=== PATIENT | male | born 1990 | race Caucasian/White ===

== ENCOUNTER 2017-10-10 11:50 | Observation (INO) ==
[2017-10-10 12:34] LABS: Basophils % 0.4 %; Immature Granulocytes % 0.4 % (0-4)
[2017-10-10 12:36] LABS: Eosinophils # 0.1 K/mcL (0.0-0.6); Eosinophils % 4.3 %; Hematocrit 17.1 % (37.5-50.1); Lymphocytes # 0.5 K/mcL (0.6-4.6); Lymphocytes % 19.8 %; Mean Corpuscular HGB Conc 25.1 g/dL (31.6-35.5); Mean Corpuscular Hemoglobin 17.8 pg (28.0-33.3); Mean Platelet Volume 9.2 fL (9.4-12.4); Monocytes # 0.2 K/mcL (0.0-1.3); Monocytes % 8.9 %; Neutrophils # 1.7 K/mcL (1.6-8.9); Platelet Count 201 K/mcL (140-400); Red Blood Count 2.41 M/mcL (4.19-5.50); Segmented Neutrophils % 66.2 %
[2017-10-10 12:39] LABS: Hemoglobin 4.3 g/dL (12.9-16.9)
[2017-10-10 12:59] LABS: Alanine Aminotransferase 8 Units/L (7-52); Albumin 4.4 g/dL (3.5-5.7); Albumin/Globulin Ratio 1.8 (1.1-2.2); Alkaline Phosphatase 65 Units/L (34-104); Aspartate Amino Transferase 13 Units/L (13-39); BUN/Creatinine Ratio 16 (6-26); Bilirubin,Total 0.8 mg/dL (0.3-1.0); Blood Urea Nitrogen 10 mg/dL (6-20); Calcium 8.9 mg/dL (8.6-10.3); Carbon Dioxide 25 mEq/L (23-29); Chloride 106 mEq/L (98-107); Globulin 2.4 g/dL (2.4-3.5); Glucose 79 mg/dL (70-105); Osmolality,Calculated 280 (280-300); Potassium 3.8 mEq/L (3.5-5.1); Sodium 136 mEq/L (136-145); Total Protein 6.8 g/dL (6.4-8.9); eGFR For African Americans > 60 (> 60); eGFR For Non-African Americans > 60 (> 60)
--- NOTE | 2017-10-10 13:04 | Emergency Department Note ---
Disposition Clinical Impression: Cystic hygroma Anemia Qualifiers: Anemia type: unspecified type Qualified Code(s): D64.9 - Anemia, unspecified Disposition: Admitted As Inpatient Condition: Fair Forms: ED Satisfaction Letter, Work/School Release Time of Disposition: 13:25 Recheck wound or abnormal lab - General Chief Complaint: ED General Medical Stated Complaint: "hemoglobin is low" Time Seen by Provider: 10/10/17 12:44 Source: patient Mode of arrival: ambulatory Limitations: no limitations Nursing Notes Reviewed: Yes Vital Signs Reviewed: Yes - History of Present Illness HPI Narrative: 26-year-old with a history of a cystic hygroma of the tongue who comes in for possible low blood count. Patient states he intermittently will require blood transfusions. I reviewed the records his last transfusion about a year and a half ago. Pt Subjective Complaint: abnormal lab(s) Associated symptoms: other (Generalized weakness) - Related Data Home Medications Medication Instructions Recorded Confirmed Ferrous Sulfate 325 mg PO BID 04/30/15 07/16/15 Folic Acid 03/09/17 Mirtazapine 03/09/17 Previous Rx's Medication Instructions Recorded predniSONE [PredniSONE] 10 mg PO DAILY #30 tablet 07/18/15 DiphenhydraMINE [Benadryl] 25 mg PO Q6HR PRN #20 capsule 03/09/17 EPINEPHrine [Epipen] 0.3 mg IM ONCE PRN #1 kit 03/09/17 Ranitidine HCl [Zantac] 150 mg PO BID #6 tablet 03/09/17 predniSONE [PredniSONE] 20 mg PO BID #10 tablet 03/09/17 Allergies Allergy/AdvReac Type Severity Reaction Status Date / Time No Known Allergies Allergy Verified 10/10/17 12:02 All systems ED: reviewed and negative except as stated. Constitutional: Denies: fever, chills, weakness, weight change Eyes: Denies: eye pain, eye discharge, vision change ENT ED: Denies: ear pain, throat pain, dental pain, hearing loss, epistaxis, congestion, dysphagia Cardiovascular: Denies: chest pain, palpitations, dyspnea on exertion, edema, syncope Respiratory: Denies: cough, dyspnea, wheezes, hemoptysis, stridor Gastrointestinal: Denies: abdominal pain, nausea, vomiting, diarrhea, constipation, hematemesis, melena, hematochezia Genitourinary: Denies: urgency, dysuria, frequency, hematuria Musculoskeletal: Denies: back pain, neck pain, arthralgia, myalgia Integumentary: Denies: rash, abrasion, lesions Neurological: Reports: weakness (Generalized). Denies: headache, numbness, paresthesias, confusion, abnormal gait, vertigo Psychiatric: Denies: anxiety, depression, suicidal thoughts, homicidal thoughts , auditory hallucinations, visual hallucinations Endocrine: Denies: fatigue Hematological/Lymphatic: Denies: easy bleeding, easy bruising Allergic/Immunologic: Denies: facial swelling, urticaria Past Medical History - Past Medical History Medical history: Reports: other Surgical history: Reports: other (10 surgeries in the past for cystic hygroma) Psychiatric history: Reports: depression - Social History Smoking Status: Current every day smoker Smokeless Tobacco Status: No Alcohol use: Reports: none Drug use: Reports: marijuana Physical Exam - General Limitations: no limitations General appearance: alert - Head Head exam: atraumatic, normocephalic, normal inspection - Eye Eye exam: Present: normal appearance - ENT ENT exam: other (Large cystic hygroma of the tongue which patient states is stable.) - Chest Chest inspection: Present: normal inspection, symmetric chest wall rise - Respiratory Respiratory exam: Present: normal lung sounds bilaterally - Cardiovascular Cardiovascular exam: Present: regular rate, normal rhythm, normal heart sounds - Abdominal Exam Abdominal exam: Present: soft, Non-Tender. Absent: tenderness, distention, guarding, rebound, rigidity - Extremities Exam Extremities exam: Present: normal inspection, full ROM. Absent: tenderness, pedal edema - Expanded Lower Extremity Exam Neurovascular/Tendon exam: Absent: motor deficit, sensory deficit, tendon deficit Gait: observed and normal - Back Exam Back exam: Present: normal inspection, full ROM. Absent: tenderness - Neurological Exam Neurological exam: Present: alert, oriented X3 - Psychiatric Psychiatric exam: Present: normal affect, normal mood - Skin Skin exam: Present: warm, dry, intact, normal color Course - Consultations Consultation #1: 26-year-old male with a cystic hygroma who comes in with low hemoglobin. Patient will be admitted for blood transfusion. Patient was discussed with amie Parker. Time: 13:18 Vital Signs Temperature 98.3 F 10/10/17 12:02 Pulse Rate 93 10/10/17 12:02 Respiratory Rate 20 10/10/17 12:02 Blood Pressure 117/65 10/10/17 12:02 O2 Sat by Pulse Oximetry 100 10/10/17 12:02 Temperature 98.3 F 10/10/17 12:02 Pulse Rate 93 10/10/17 12:02 Respiratory Rate 20 10/10/17 12:02 Blood Pressure 117/65 10/10/17 12:02 O2 Sat by Pulse Oximetry 100 10/10/17 12:02 Oxygen Delivery Oxygen Delivery Room Air Recheck wound or abnormal lab - Lab Data Result diagrams: 10/10/17 12:05 10/10/17 12:05 Lab Results 10/10/17 10/10/17 Range/Units 12:05 12:05 WBC 2.6 L (4.3-11.1) K/mcL RBC 2.41 L (4.19-5.50) M/mcL Hgb 4.3 L* (12.9-16.9) g/dL Hct 17.1 L (37.5-50.1) % MCV 71.0 L (83.0-100.0) fL MCH 17.8 L (28.0-33.3) pg MCHC 25.1 L (31.6-35.5) g/dL RDW 20.0 H (11.5-14.5) % Plt Count 201 (140-400) K/mcL MPV 9.2 L (9.4-12.4) fL Sodium 136 (136-145) mEq/L Potassium 3.8 (3.5-5.1) mEq/L Chloride 106 (98-107) mEq/L Carbon Dioxide 25 (23-29) mEq/L BUN 10 (6-20) mg/dL Creatinine 0.62 L (0.70-1.30) mg/dL Est GFR ( Amer) > 60 (> 60) Est GFR (Non-Af Amer) > 60 (> 60) BUN/Creatinine Ratio 16 (6-26) Glucose 79 (70-105) mg/dL Calculated Osmolality 280 (280-300) Calcium 8.9 (8.6-10.3) mg/dL Total Bilirubin 0.8 (0.3-1.0) mg/dL AST 13 (13-39) Units/L ALT 8 (7-52) Units/L Alkaline Phosphatase 65 (34-104) Units/L Serum Total Protein 6.8 (6.4-8.9) g/dL Albumin 4.4 (3.5-5.7) g/dL Globulin 2.4 (2.4-3.5) g/dL Albumin/Globulin Ratio 1.8 (1.1-2.2)
[2017-10-10] MEDS ORDERED: Ondansetron 4 MG/2 ML VIAL IVP ONE (13:33)
[2017-10-10] MEDS ORDERED: methylPREDNISolone 125 MG/2 ML VIAL IVP ONE (13:33)
[2017-10-10] MEDS ORDERED: *HR* FentaNYL (PF) 100 MCG/2 ML VIAL IVP ONE (13:33)
[2017-10-10 13:43] LABS: Anisocytosis 1+ (Not Present); Hypochromasia Present (Not Present); Microcytosis Present (Not Present); Platelet Estimate Normal (Normal)
--- NOTE | 2017-10-10 17:26 | Internal Med History&Physical ---
Date of Encounter: 10/10/17 Time of Encounter: 18:44 Internal Medicine - H&P: HPI Admitted From: Home Plans for Post Hospital Care: Home History of present illness: Mr. Simmons is a 26 year old male with known history of cystic hygroma of the tongue in the care of ENT at [facility] but did not see for a few years, history of repeated blood transfusion got admitted with complaint of fatigue, generalized weakness. In the ER hemoglobin was found to be 4.3. Therefore patient got admitted for management of symptomatic anemia. Patient denies fever, chills, nausea, vomiting, shortness of breath, choking sensation of throat, abdominal pain, hemoptysis, hematemesis, hematochezia, headache, dizziness, urinary complaint Past Med Surg Social Fam HX - Past Medical History Medical history: other Psychiatric history: depression - Past Surgical History Surgical History: other - Social History Smoking Status: Current every day smoker Packs per day: 0.5 Smokeless Tobacco Status: No Alcohol use: none Drug use: marijuana - Family History Father Adopted: No Living Status: Still Living Hx Family Cardiac Disorders: No Hx Family Respiratory Disorders: No Hx Family Endocrine Disorder: Yes Hx Family Medical Disorders: Yes Internal Medicine - H&P: Meds Buprenorphine HCl/Naloxone HCl [Buprenorphin-Naloxon 8-2 mg Sl] 2 tab SL DAILY 10/10/17 [History] Folic Acid [Folic Acid] 1 mg PO DAILY 10/10/17 [History] 3 Allergy/AdvReac Type Severity Reaction Status Date / Time No Known Allergies Allergy Verified 10/10/17 12:02 All Systems PM: A 10-system review of systems was performed and is negative for pertinent findings except as documented above in the HPI. - Constitutional Vitals: Temp Pulse Resp BP Pulse Ox 98.4 F 78 17 119/56 100 10/10/17 16:57 10/10/17 16:57 10/10/17 16:57 10/10/17 16:35 10/10/17 16:57 Exam: General appearance: No acute distress, A&O X 3. Pale Head exam: Atraumatic Eye exam: EOMI, PERRLA. Pallor conjunctiva ENT exam: Moist oral mucosa. Large tongue with swelling and superficial ulcerated tongue without active bleeding Neck nontender, supple Respiratory exam: Clear to auscultation bilaterally Cardiovascular exam: Regular rate and rhythm, no systolic murmur Abdominal exam: Soft, nontender, nondistended, positive bowel sounds Extremities exam: No calf tenderness, no pedal edema Present: Skin-no rash, warm, dry, intact Neurological exam: Alert, awake, oriented 3, CN II-XII intact, no focal deficits. No facial droop. Normal speech. Normal gait. Internal Med - H&P Results - Labs CBC & Chem 7: 10/11/17 13:57 10/10/17 12:05 - Assessment and plan (1) Anemia Current Visit: Yes Status: Acute Assessment and plan: Acute on chronic anemia most likely due to chronic blood loss. History of repeated blood transfusion. No active visible bleeding. Needs blood transfusion. 2 unit PRC stat ordered. H&H every 8 hour. Qualifiers: Anemia type: unspecified type Qualified Code(s): D64.9 - Anemia, unspecified (2) Cystic hygroma Current Visit: Yes Status: Chronic Assessment and plan: Chronic. Status post surgery done by ENT specialist in the past. Noncompliant. No airway compromise at this time but consider high-dose steroid due to ongoing swelling. Will also consult ENT specialist for further advice (3) DVT prophylaxis Current Visit: No Status: Acute Assessment and plan: SCDs - Time Spent With Patient Total time spent is greater than 50% in coordination of care (as documented) at patient's floor/unit and/or counseling patient:
[2017-10-10] MEDS ORDERED: Naloxone 0.4 MG/ML INJ IVP PRN (18:16)
[2017-10-10 19:12] LABS: Hematocrit 16.9 % (37.5-50.1)
[2017-10-10 20:00] LABS: Hemoglobin 4.2 g/dL (12.9-16.9)
[2017-10-10] MEDS: *HR* HYDROcodone/Acet 5/325 mg TABLET PO PRN (22:14)
[2017-10-10] MEDS ORDERED: 0.9 % Sodium Chloride 250 ML ONE (23:27)
[2017-10-11] MEDS: methylPREDNISolone 125 MG/2 ML VIAL IVP SCH ×3 (00:18→17:22)
[2017-10-11] MEDS ORDERED: 0.9 % Sodium Chloride 250 ML ONE ×3 (03:02→17:52)
[2017-10-11] MEDS: *HR* HYDROcodone/Acet 5/325 mg TABLET PO PRN ×3 (05:34→18:49)
[2017-10-11 07:03] LABS: Hematocrit 21.9 % (37.5-50.1)
--- NOTE | 2017-10-11 07:58 | ENT - Consult Note ---
Date of Encounter: 10/11/17 Time of Encounter: 07:30 Assessment and Plan (1) Cystic hygroma Current Visit: No Status: Acute Patient with history of cystic hygroma of neck who is status post multiple surgical procedures and injection therapy. He is stable. No further surgery has been planned for the patient and is followed by ENT and [facility]. Intermittently he has increase in the swelling of the tongue which responds well to steroid therapy which she receives last p.m. and is doing much better. He may require steroid therapy couple of times per year and he knows when to seek this time he is doing well would consider a short course of steroid taper over the next week. Is okay to advance his diet as tolerated at this time. He is to follow-up with Celine CANTRELLU History of Present Illness Consult date: 10/11/17 History of present illness: Grover is a 26-year-old male with history of cystic hygroma in the neck. Status post multiple surgical procedures and sclerotherapy is followed by ENT at [facility] and also a local ENT. Has not been seen for a couple of years. Typically has intermittent swelling of the tongue requiring steroids to decrease the swelling. Also has history of chronic anemia requiring intermittent blood transfusion. He was admitted last night with generalized weakness and fatigue and findings of a hemoglobin of 4.3. He was given 2 units of packed RBCs and is pending reevaluation of his hemoglobin and he also received IV Solu-Medrol for the tongue swelling. He is feeling much better. He is able to eat and drink however he has been kept on liquid diet only overnight and is hungry and desires to eat he is feeling much better than last p.m. He does not have any airway problems no stridor no difficulties breathing is not having any difficulty swallowing, there is no oral tongue bleeding Past Med Surg Social Fam HX - Past Medical History Medical history: other Psychiatric history: depression - Past Surgical History Surgical History: other - Social History Smoking Status: Current every day smoker Packs per day: 0.5 Smokeless Tobacco Status: No Alcohol use: none Drug use: marijuana - Family History Father Adopted: No Living Status: Still Living Hx Family Cardiac Disorders: No Hx Family Respiratory Disorders: No Hx Family Endocrine Disorder: Yes Hx Family Medical Disorders: Yes Medications and Allergies Buprenorphine HCl/Naloxone HCl [Buprenorphin-Naloxon 8-2 mg Sl] 2 tab SL DAILY 10/10/17 [History] Folic Acid [Folic Acid] 1 mg PO DAILY 10/10/17 [History] 3 Allergy/AdvReac Type Severity Reaction Status Date / Time No Known Allergies Allergy Verified 10/10/17 12:02 ENT Exam Initial Vital Signs Temp Pulse Resp BP Pulse Ox 98.3 F 93 20 117/65 100 10/10/17 12:02 10/10/17 12:02 10/10/17 12:02 10/10/17 12:02 10/10/17 12:02 - General physical appearance well developed, well nourished, no distress - Eyes PERRL, normal ocular movement - ENT normal pinna, normal nares, normal mucosa, no hearing loss, no congestion, CN 2- 12 grossly intact, Other (Patient has large tongue and increase vascular Capillaries within the tongue and floor of mouth is not obstructing. There is no active bleeding. This is his usual state. He is edentulous oropharynx is without obstruction. He has had previous tonsillectomy pathology seen and noted is increased vascular capillaries no active bleeding and no airway obstruction) - Neck other (Patient has well-healed scars on his neck from previous neck surgery for his cystic hygroma. Is still evidence of cystic hygroma within mentum and submentum and level II bilateral no overlying no tenderness) - Respiratory normal expansion, normal respiratory effort - Neurologic CN 2-12 grossly intact, normal coordination - Musculoskeletal normal posture Exam Initial Vital Signs Temp Pulse Resp BP Pulse Ox 98.3 F 93 20 117/65 100 10/10/17 12:02 10/10/17 12:02 10/10/17 12:02 10/10/17 12:02 10/10/17 12:02 Results - Labs 10/11/17 06:50 10/10/17 12:05 Abnormal lab results WBC 2.6 K/mcL (4.3-11.1) L 10/10/17 12:05 RBC 2.41 M/mcL (4.19-5.50) L 10/10/17 12:05 Hgb 6.0 g/dL (12.9-16.9) L* D 10/11/17 06:50 Hct 21.9 % (37.5-50.1) L 10/11/17 06:50 MCV 71.0 fL (83.0-100.0) L 10/10/17 12:05 MCH 17.8 pg (28.0-33.3) L 10/10/17 12:05 MCHC 25.1 g/dL (31.6-35.5) L 10/10/17 12:05 RDW 20.0 % (11.5-14.5) H 10/10/17 12:05 MPV 9.2 fL (9.4-12.4) L 10/10/17 12:05 Lymphocytes # 0.5 K/mcL (0.6-4.6) L 10/10/17 12:05 Hypochromasia Present (Not Present) A 10/10/17 12:05 Anisocytosis 1+ (Not Present) A 10/10/17 12:05 Microcytosis Present (Not Present) A 10/10/17 12:05 Creatinine 0.62 mg/dL (0.70-1.30) L 10/10/17 12:05 All other labs normal. Consult Discharge Plan - Plan Referrals: Kristyn Weaver CNP [Primary Care Provider] -
--- NOTE | 2017-10-11 08:30 | Internal Med Progress Note ---
<Real Calloway Brenda - Last Filed: 10/11/17 15:40> Date of Encounter: 10/11/17 - Assessment and plan (1) Anemia Current Visit: Yes Status: Acute Qualifiers: Anemia type: unspecified type Qualified Code(s): D64.9 - Anemia, unspecified (2) Cystic hygroma Current Visit: Yes Status: Chronic (3) DVT prophylaxis Current Visit: No Status: Acute - Time Spent With Patient Total time spent is greater than 50% in coordination of care (as documented) at patient's floor/unit and/or counseling patient: - Constitutional Vitals: Temp Pulse Resp BP Pulse Ox 97.6 F 80 16 109/65 99 10/11/17 15:22 10/11/17 15:22 10/11/17 15:22 10/11/17 15:22 10/11/17 15:22 Internal Medicine: Result - Labs CBC & Chem 7: 10/11/17 13:57 10/10/17 12:05 Labs: Short CBC 10/10/17 10/11/17 10/11/17 Range/Units 18:38 06:50 13:57 Hgb 4.2 L* 6.0 L* D 6.9 L (12.9-16.9) g/dL Hct 16.9 L 21.9 L 24.7 L (37.5-50.1) % Consult Discharge Plan - Plan Referrals: Kristyn Weaver, [facility] [Primary Care Provider] - - Attending Attestation I performed an independent interview and examin of this patient. I agree with the findings, assessment, and plan of Dr. Palmer, internal medicine resident. I input is reflected in his note. ENT input is appreciated. Patient has a history of known bleeding from his cystic hygroma. He is ordered for 3 units of packed blood cells in total. Possibly a fourth if needed. Repeat hemoglobin is 6.9. Patient states he does not sense any further bleeding as he is often aware when he does. He remains hemodynamically stable. His tongue swelling has improved since starting steroids. We will continue to monitor overnight, check serial hemoglobins. All else as outlined above. <Julio Cesar Palmer - Last Filed: 10/11/17 18:51> Date of Encounter: 10/11/17 Time of Encounter: 08:30 - Assessment and plan (1) Anemia Current Visit: Yes Status: Acute Assessment and plan: Acute on chronic anemia most likely due to chronic blood loss from his cystic hygroma. History of repeated blood transfusion. HGB 4.2 on arrival. No active visible bleeding. Patient states he does not sense any further bleeding as he is often aware when he does. He remains hemodynamically stable. His tongue swelling has improved since starting steroids. 4 units PRC transfused. Monitor H&H every 8 hour. Continue blood transfusion prn HGB < 7. Qualifiers: Anemia type: unspecified type Qualified Code(s): D64.9 - Anemia, unspecified (2) Cystic hygroma Current Visit: Yes Status: Chronic Assessment and plan: Chronic. Status post surgery done by ENT specialist in the past. Noncompliant. No airway compromise at this time. His tongue swelling has improved since starting steroids. ENT consulted, input much appreciated (3) Irregular cardiac rhythm Current Visit: Yes Status: Acute Assessment and plan: Patient had occasional ST depressions noted on telemetry strip and EKG revealed abnormal rhythm. EKG revealed inconsistent p waves Cardiac murmur auscultated on exam Echo pending, r/o hypoplastic left heart given concurrent cystic hygroma (4) DVT prophylaxis Current Visit: No Status: Acute Assessment and plan: SCDs - Time Spent With Patient Total time spent is greater than 50% in coordination of care (as documented) at patient's floor/unit and/or counseling patient: - Subjective Interval history: Patient seen and examined resting comfortably in bed, Patient reports no acute complaints and tongue swelling has improved with steroids. He has received 3 units of PRBC and HGB increased to 6.9. Of note, patient had occasional ST depressions noted on telemetry strip and EKG revealed abnormal rhythm. Family is at bedside. - Constitutional Vitals: Temp Pulse Resp BP Pulse Ox 97.9 F 70 18 109/64 100 10/11/17 07:05 10/11/17 07:05 10/11/17 07:05 10/11/17 07:05 10/11/17 07:05 General appearance: Present: cooperative, mild distress, A&O X 3, pleasant, answers questions appropriately - Head Head exam: Present: atraumatic, normocephalic - Eye Eye exam: Present: PERRL, conjuntiva pink, sclera anicteric Pupils: Present: PERRL - ENT ENT exam: Present: mucous membranes moist. Absent: normal exam, normal oropharynx - Expanded ENT Exam Mouth exam: Present: moist, muffled voice, tongue elevation, tongue hypertrophy. Absent: normal external inspection, tongue normal - Neck Neck exam general surgery: Present: supple, trachea midline. Absent: lymphadenopathy - Expanded Neck Exam Neck exam: Present: anterior neck swelling. Absent: carotid bruit, tracheal deviation - Respiratory Respiratory exam: Present: CTAB. Absent: accessory muscle use, rales, rhonchi, wheezes - Cardiovascular Cardiovascular exam: Present: irregular rhythm, +S1, +S2, systolic murmur. Absent: diastolic murmur, distant heart sounds, gallop, rubs - GI/Abdominal GI/Abdominal exam: Present: normal bowel sounds, soft, no peritoneal signs. Absent: distended, tenderness - Extremities Exam Extremities exam: Present: warm, radial pulses palpable and symmetrical. Absent : calf tenderness, cyanotic, pedal edema - Back Exam Back exam: Present: normal inspection. Absent: tenderness - Neurological Exam Neurological exam: Present: CN II-XII intact, oriented X3, no focal deficits. Absent: pronater drift, facial droop, speech deficit - Psychiatric Psychiatric exam: Present: normal affect, normal mood - Skin Skin exam: Present: dry, intact, pallor, warm Internal Medicine: Result - Labs CBC & Chem 7: 10/11/17 13:57 10/10/17 12:05 Labs: Short CBC 10/10/17 10/11/17 Range/Units 18:38 06:50 Hgb 4.2 L* 6.0 L* D (12.9-16.9) g/dL Hct 16.9 L 21.9 L (37.5-50.1) % - Pulse Oximetry Interpretation Digit-Finger Pulse Oximetry Readin (On RA) - EKG Interpretation EKG Interpreted by Myself: Yes (EKG revealed inconsistent p waves) EKG shows normal: axis, intervals, QRS complexes, ST-T waves Rate: normal - Prior EKG Data Prior EKG available for review: no
[2017-10-11] MEDS: Folic Acid 1 MG TABLET PO SCH (09:57)
[2017-10-11 14:20] LABS: Hematocrit 24.7 % (37.5-50.1); Hemoglobin 6.9 g/dL (12.9-16.9)
[2017-10-11] MEDS: (Buprenorphine Hcl/Naloxone Hcl [Buprenorphin-Naloxon SL SCH (18:50)
[2017-10-12] MEDS: methylPREDNISolone 125 MG/2 ML VIAL IVP SCH ×2 (00:09→10:19)
[2017-10-12] MEDS: *HR* HYDROcodone/Acet 5/325 mg TABLET PO PRN (04:53)
[2017-10-12 05:22] LABS: Immature Granulocytes % 0.7 % (0-4); Mean Corpuscular Hemoglobin 20.9 pg (28.0-33.3); Red Cell Distribution Width 19.7 % (11.5-14.5)
[2017-10-12 05:24] LABS: Basophils % 0.2 %; Hematocrit 28.3 % (37.5-50.1); Lymphocytes # 0.2 K/mcL (0.6-4.6); Lymphocytes % 4.7 %; Mean Corpuscular HGB Conc 28.3 g/dL (31.6-35.5); Mean Corpuscular Volume 73.9 fL (83.0-100.0); Monocytes # 0.2 K/mcL (0.0-1.3); Monocytes % 3.4 %; Neutrophils # 4.1 K/mcL (1.6-8.9); Nucleated Red Blood Cells 1.1 /100 WBC (0); Platelet Count 203 K/mcL (140-400); Red Blood Count 3.83 M/mcL (4.19-5.50)
[2017-10-12 05:38] LABS: BUN/Creatinine Ratio 22 (6-26); Blood Urea Nitrogen 12 mg/dL (6-20); Calcium 9.2 mg/dL (8.6-10.3); Carbon Dioxide 25 mEq/L (23-29); Chloride 105 mEq/L (98-107); Glucose 137 mg/dL (70-105); Magnesium 2.1 mg/dL (1.6-2.6); Osmolality,Calculated 282 (280-300); Potassium 4.3 mEq/L (3.5-5.1); Sodium 135 mEq/L (136-145); eGFR For African Americans > 60 (> 60); eGFR For Non-African Americans > 60 (> 60)
[2017-10-12 05:43] LABS: Platelet Estimate Normal (Normal)
[2017-10-12 05:44] LABS: Anisocytosis 1+ (Not Present); Hypochromasia Present (Not Present)
[2017-10-12 05:45] LABS: Microcytosis Present (Not Present); Polychromasia 1+ (Not Present)
[2017-10-12 05:51] LABS: Thyroid Stimulating Hormone 0.166 mcIU/mL (0.340-5.600)
[2017-10-12 07:03] VITALS: BP 110/60
[2017-10-12] MEDS: (Buprenorphine Hcl/Naloxone Hcl [Buprenorphin-Naloxon SL SCH (10:19)
[2017-10-12] MEDS: Folic Acid 1 MG TABLET PO SCH (10:19)
--- NOTE | 2017-10-12 14:35 | Discharge Summary ---
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 Status post multiple surgical procedures and sclerotherapy is followed by ENT at [facility] and also a local ENT. Has not been seen for a couple of years. Typically has intermittent swelling of the tongue requiring steroids to decrease the swelling. Also has history of chronic anemia requiring intermittent blood transfusion. He was admitted last night with generalized weakness and fatigue and findings of a hemoglobin of 4.3. He was given 5 units of packed RBCs since admission. Hemoglobin has been trending up 4.2/6.0/6.9/ 8.0. Patient is stable. Denies any active bleeding. Denies CP, SOB, abdominal pain. Voiding without difficulty. +BM. Tolerating food intake. Plan to discharge patient today with ENT outpatient follow-up and prednisone taper for 9 days. Patient demonstrates understanding and is agreeable to treatment plan. Discharge discussed with: patient - Time Spent with Patient Total time spent providing and/or coordinating discharge services: Greater than 30 minutes - Discharge Medications Prescriptions: PredniSONE [Deltasone] See Taper PO DAILY #12 tablet Home Medications: Buprenorphine HCl/Naloxone HCl [Buprenorphin-Naloxon 8-2 mg Sl] 2 tab SL DAILY 10/10/17 [History] Folic Acid [Folic Acid] 1 mg PO DAILY 10/10/17 [History] PredniSONE [Deltasone] See Taper PO DAILY #12 tablet 10/12/17 [Rx] Allergies/Adverse Reactions: 3 Allergy/AdvReac Type Severity Reaction Status Date / Time No Known Allergies Allergy Verified 10/10/17 12:02 Date of admission: 10/10/17 16:04 Primary care physician: Kristyn Weaver Consults: 10/10/17 18:16 Consult to ENT [CONS] Routine Consulting Provider: ENT Bekah Reason for Consult: Cystic hygroma Time Notified: 18:23 Call Completed: No Discharging clinician: Deric Fernandez Anticipated date of discharge: 10/12/17 - Constitutional Vitals: Temp Pulse Resp BP Pulse Ox 98 F 62 16 110/60 100 10/12/17 07:02 10/12/17 07:02 10/12/17 07:02 10/12/17 07:02 10/12/17 07:02 General appearance: Present: cooperative, mild distress, A&O X 3, pleasant, answers questions appropriately - Head Head exam: Present: atraumatic, normocephalic - Eye Eye exam: Present: PERRL, conjuntiva pink, sclera anicteric Pupils: Present: PERRL - Neck Neck exam general surgery: Present: supple, trachea midline. Absent: lymphadenopathy - Respiratory Respiratory exam: Present: CTAB. Absent: accessory muscle use, rales, rhonchi, wheezes - Cardiovascular Cardiovascular exam: Present: RRR, +S1, +S2. Absent: diastolic murmur, gallop, rubs, systolic murmur - GI/Abdominal GI/Abdominal exam: Present: normal bowel sounds, soft, no peritoneal signs. Absent: distended, tenderness - Extremities Exam Extremities exam: Present: warm, radial pulses palpable and symmetrical. Absent : calf tenderness, cyanotic, pedal edema - Neurological Exam Neurological exam: Present: CN II-XII intact, oriented X3, no focal deficits. Absent: pronater drift, facial droop, speech deficit - Skin Skin exam: Present: dry, intact - Patient Status Disposition: Home, Self-Care Condition: Fair Functional capacity at discharge: independent ambulation Overall status at discharge: patient is back to baseline - Discharge Instructions Instructions: Prednisone (By mouth), Anemia (GEN) Follow Up With: Kristyn Weaver CNP [Primary Care Provider] - 10/18/17 11:00 am Additional Instructions: Activity as tolerated. - Diet and Activity Activity: resume usual activities as tolerated <Real Calloway - Last Filed: 10/12/17 14:50> Date of Encounter: 10/12/17 - Discharge Diagnosis (1) Anemia Status: Acute Qualifiers: Anemia type: unspecified type Qualified Code(s): D64.9 - Anemia, unspecified (2) Cystic hygroma Status: Chronic (3) Irregular cardiac rhythm Status: Acute Hospital course: Mr. Simmons is a 26 year old male - Time Spent with Patient Total time spent providing and/or coordinating discharge services: Date of admission: 10/10/17 16:04 Primary care physician: Kristyn Weaver Consults: 10/10/17 18:16 Consult to ENT [CONS] Routine Consulting Provider: MARISELA Godfrey Reason for Consult: Cystic hygroma Time Notified: 18:23 Call Completed: No - Constitutional Vitals: Temp Pulse Resp BP Pulse Ox 98 F 62 16 110/60 100 10/12/17 07:02 10/12/17 07:02 10/12/17 07:02 10/12/17 07:02 10/12/17 07:02 - Attending Attestation I performed an independent interview and examine this patient. I agree with the findings, assessment, and plan of , internal medicine graphics intern. Since hemoglobin has remained stable and he is not showing any further evidence of bleeding. His tongue swelling is also improving. He was discussed with ENT who recommended an additional 9 days of tapering prednisone. Pt to return immediately should he have any airway complaints or any weakness or signs of bleeding. Patient otherwise was deemed stable for discharge. Will follow up with ENT as recommended.
--- NOTE | 2017-10-13 15:49 | Electrocardiograph Report ---
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
== END 2017-10-12 14:49 | disposition home or self-care (01) ==
LOC: EMEROO 11:50 → 2NENU 11:50
PROVIDERS: ADMIT General Practice; ATTEND Hospitalist

== ENCOUNTER 2018-04-12 12:52 | Inpatient (IN) ==
[2018-04-12 14:18] LABS: Basophils % 0.2 %; Immature Granulocytes % 0.9 % (0-4); Lymphocytes # 0.2 K/mcL (0.6-4.6); Lymphocytes % 3.2 %; Mean Corpuscular HGB Conc 24.8 g/dL (31.6-35.5); Mean Corpuscular Hemoglobin 17.5 pg (28.0-33.3); Mean Corpuscular Volume 70.5 fL (83.0-100.0); Mean Platelet Volume 9.5 fL (9.4-12.4); Monocytes # 0.1 K/mcL (0.0-1.3); Monocytes % 1.4 %; Neutrophils # 5.4 K/mcL (1.6-8.9); Nucleated Red Blood Cells 0.4 /100 WBC (0); Platelet Count 159 K/mcL (140-400); Red Blood Count 1.66 M/mcL (4.19-5.50); Red Cell Distribution Width 24.2 % (11.5-14.5); Segmented Neutrophils % 94.3 %
[2018-04-12 14:24] LABS: Hematocrit 11.7 % (37.5-50.1); Hemoglobin 2.9 g/dL (12.9-16.9)
--- NOTE | 2018-04-12 14:48 | Emergency Department Note ---
Disposition Clinical Impression: Cystic hygroma Anemia Qualifiers: Anemia type: unspecified type Qualified Code(s): D64.9 - Anemia, unspecified Disposition: Admitted As Inpatient Condition: Fair Referrals: Kristyn Weaver CNP [Advanced Practice Nurse] - Forms: ED Satisfaction Letter Time of Disposition: 17:09 General Adult HPI - General Chief complaint: ED Recheck/Abnormal Lab/Rx Stated complaint: Fatigue Time Seen by Provider: 04/12/18 13:03 Source: patient Mode of arrival: ambulatory Limitations: no limitations Nursing Notes Reviewed: Yes Vital Signs Reviewed: Yes - History of Present Illness HPI Narrative: 27-year-old male history of cystic hydroma with increased swelling of the neck and mouth. Said this is a chronic issue and has been a problem since . He does have normally low hemoglobin this is when he gets to overly does need transfusions happens about 3 times year. He feels like that his his urinary does has weakness. They said he does have mild pain. He normally takes Solu- Medrol for the swelling in his face. Patient says what happens is normally has cracks in his tongue due to mouth breathing and he ends up bleeding too much and then caused him to have a low hemoglobin needing transfusion. Patient otherwise has no complaint this time. He does take Suboxone. Patient has no headaches, fevers, blurry vision, neck pain, back pain, chest pain, shortness of breath, headache, blurry vision, neck pain, back pain, dizziness, changes in balance, pain with urination, pain or tearing on the arms or legs.. Pain Scale: 3 - Related Data Home Medications Medication Instructions Recorded Confirmed Buprenorphine HCl/Naloxone HCl 2 tab PO DAILY 04/12/18 04/12/18 [Buprenorphin-Naloxon 8-2 mg Sl] Allergies Allergy/AdvReac Type Severity Reaction Status Date / Time No Known Allergies Allergy Verified 04/11/18 10:13 All systems ED: reviewed and negative except as stated. Review of Systems: As Per HPI Past Medical History - Past Medical History Attestation: Yes The following information was validated with the patient. Source: patient Medical history: Reports: hypertension, other Surgical history: Reports: other Psychiatric history: Reports: anxiety, depression - Social History Smoking Status: Current every day smoker Smokeless Tobacco Status: No Alcohol use: Reports: rarely Drug use: Reports: marijuana Physical Exam - General Limitations: no limitations General appearance: alert - Head Head exam: atraumatic, normocephalic, normal inspection - Eye Eye exam: Present: normal appearance, PERRL, EOMI - ENT ENT exam: normal exam, normal oropharynx, mucous membranes moist - Neck Neck exam: Present: normal inspection, full ROM, trachea midline - Chest Chest inspection: Present: normal inspection, symmetric chest wall rise - Respiratory Respiratory exam: Present: normal lung sounds bilaterally. Absent: respiratory distress, wheezes, stridor, accessory muscle use - Cardiovascular Cardiovascular exam: Present: regular rate, normal rhythm, normal heart sounds - Abdominal Exam Abdominal exam: Present: soft, Non-Tender, normal bowel sounds. Absent: tenderness, distention, guarding, rebound, rigidity - Extremities Exam Extremities exam: Present: normal inspection, full ROM. Absent: tenderness, pedal edema - Back Exam Back exam: Present: normal inspection, full ROM. Absent: tenderness, CVA tender ness (R), CVA tenderness (L) - Neurological Exam Neurological exam: Present: alert, oriented X3 - Skin Skin exam: Present: warm, dry, intact, normal color Course Course Narrative: We will get basic labs including CBC, type and screen, BMP. Patient will get Solu-Medrol. Vital Signs Temperature 98.8 F 04/12/18 12:56 Pulse Rate 99 04/12/18 12:56 Respiratory Rate 18 04/12/18 12:56 Blood Pressure 147/79 04/12/18 12:56 O2 Sat by Pulse Oximetry 100 04/12/18 12:56 Temperature 98.8 F 04/12/18 13:15 Pulse Rate 91 04/12/18 15:30 Respiratory Rate 16 04/12/18 15:30 Blood Pressure 117/61 04/12/18 15:30 O2 Sat by Pulse Oximetry 100 04/12/18 15:30 Oxygen Delivery Oxygen Delivery Room Air Medical Decision Making - [facility] Narrative Medical decision making narrative: 27-year-old male presented to the emergency department with history of cystic hygroma. He does have bleeding said this happens to him all the time. He does feel comfortable with this and says that he has bright just needs a blood transfusion. Patient's hemoglobin came back at 2.7. Patient did order 2 units of red blood cells here in the emergency department. Patient is stable vital signs are stable he has no symptoms other than just basic weakness. He said thi s is evidence of a foreign is normal. He said normally the cause is that he is a mouth breather and he has cracks in his mouth and tongue was caused him to have slowed bleeds. He said he is not actively bleeding at this time but was a couple days ago. He has no other bleeding sources at this time. Patient says that he just needs a transfusion. I agree with this assessment. I did speak with ENT doctor Joon who states that patient could benefit from Biotene 2-3 times per day when he gets onto the floor. They said if needed they will consult but it depends on what the hospitalist would like. I also spoke with the hospitalist Dr. Poole who agreed to admit the patient to their service. At first she wanted patient to go to ICU but after seeing the patient he said patient go to a stepdown unit. Patient is stable at this time. He does take Suboxone Zosyn I am unable to give him any narcotics for the pain. I did give him a dose of Solu-Medrol here to help with the swelling. Patient declined having any Tylenol or Motrin at this time. Patient is admitted in stable condition. - Medical Records Medical records reviewed: Yes I reviewed the patient's medical records. - Lab Data Lab results reviewed: Yes I reviewed the patient's lab results. Result diagrams: 04/12/18 13:43 04/12/18 13:43 Lab Results 04/12/18 04/12/18 04/12/18 Range/Units 13:43 13:43 13:43 WBC 5.7 (4.3-11.1) K/mcL RBC 1.66 L (4.19-5.50) M/mcL Hgb 2.9 L* (12.9-16.9) g/dL Hct 11.7 L* (37.5-50.1) % MCV 70.5 L (83.0-100.0) fL MCH 17.5 L (28.0-33.3) pg MCHC 24.8 L (31.6-35.5) g/dL RDW 24.2 H (11.5-14.5) % Plt Count 159 (140-400) K/mcL MPV 9.5 (9.4-12.4) fL Immature Gran % 0.9 (0-4) % Seg Neutrophils % 94.3 % Lymphocytes % 3.2 % Monocytes % 1.4 % Eosinophils % 0.0 % Basophils % 0.2 % Neutrophils # 5.4 (1.6-8.9) K/mcL Lymphocytes # 0.2 L (0.6-4.6) K/mcL Monocytes # 0.1 (0.0-1.3) K/mcL Eosinophils # 0.0 (0.0-0.6) K/mcL Basophils # 0.0 (0.0-0.2) K/mcL Nucleated RBCs/100 WBC 0.4 H (0) /100 WBC Platelet Estimate Normal (Normal) Hypochromasia Present A (Not Present) Poikilocytosis 1+ A (Not Present) Anisocytosis 1+ A (Not Present) Sodium 134 L (136-145) mEq/L Potassium 3.8 (3.5-5.1) mEq/L Chloride 102 (98-107) mEq/L Carbon Dioxide 24 (23-29) mEq/L BUN 10 (6-20) mg/dL Creatinine 0.59 L (0.70-1.30) mg/dL Est GFR ( Amer) > 60 (> 60) Est GFR (Non-Af Amer) > 60 (> 60) BUN/Creatinine Ratio 17 (6-26) Glucose 133 H (70-105) mg/dL Calculated Osmolality 279 L (280-300) Calcium 9.4 (8.6-10.3) mg/dL Blood Type O POSITIVE Antibody Screen POSITIVE Antibody Identification Known Anti-K MTS Gel Crossmatch See Detail
[2018-04-12] MEDS ORDERED: methylPREDNISolone 125 MG/2 ML VIAL IVP ONE (14:49)
[2018-04-12 14:53] LABS: Anisocytosis 1+ (Not Present); Hypochromasia Present (Not Present); Platelet Estimate Normal (Normal); Poikilocytosis 1+ (Not Present)
[2018-04-12 14:54] LABS: BUN/Creatinine Ratio 17 (6-26); Blood Urea Nitrogen 10 mg/dL (6-20); Calcium 9.4 mg/dL (8.6-10.3); Carbon Dioxide 24 mEq/L (23-29); Chloride 102 mEq/L (98-107); Glucose 133 mg/dL (70-105); Osmolality,Calculated 279 (280-300); Potassium 3.8 mEq/L (3.5-5.1); Sodium 134 mEq/L (136-145); eGFR For Non-African Americans > 60 (> 60)
--- NOTE | 2018-04-12 15:35 | Emergency Department Note ---
Disposition Clinical Impression: Cystic hygroma Anemia Qualifiers: Anemia type: other cause Other causes of anemia: other cause, not classified Qualified Code(s): D64.89 - Other specified anemias Disposition: Still a Patient Referrals: Kristyn Weaver CNP [Primary Care Provider] - Forms: ED Satisfaction Letter General Adult HPI - General Chief complaint: ED Recheck/Abnormal Lab/Rx Stated complaint: Fatigue Time Seen by Provider: 04/12/18 13:03 Source: patient Mode of arrival: ambulatory Limitations: no limitations - History of Present Illness Pain Scale: 4 - Related Data Home Medications Medication Instructions Recorded Confirmed Buprenorphine HCl/Naloxone HCl 2 tab PO DAILY 04/12/18 04/12/18 [Buprenorphin-Naloxon 8-2 mg Sl] Allergies Allergy/AdvReac Type Severity Reaction Status Date / Time No Known Allergies Allergy Verified 04/11/18 10:13 Past Medical History - Past Medical History Medical history: Reports: hypertension, other Surgical history: Reports: other Psychiatric history: Reports: anxiety, depression - Social History Smoking Status: Current every day smoker Smokeless Tobacco Status: No Alcohol use: Reports: rarely Drug use: Reports: marijuana Physical Exam - General Limitations: no limitations General appearance: alert Course Vital Signs Temperature 98.8 F 04/12/18 12:56 Pulse Rate 99 04/12/18 12:56 Respiratory Rate 18 04/12/18 12:56 Blood Pressure 147/79 04/12/18 12:56 O2 Sat by Pulse Oximetry 100 04/12/18 12:56 Temperature 98.8 F 04/12/18 13:15 Pulse Rate 88 04/12/18 15:05 Respiratory Rate 16 04/12/18 15:05 Blood Pressure 125/63 04/12/18 15:05 O2 Sat by Pulse Oximetry 100 04/12/18 15:05 Oxygen Delivery Oxygen Delivery Room Air Medical Decision Making - Lab Data Result diagrams: 04/12/18 13:43 04/12/18 13:43 Lab Results 04/12/18 04/12/18 04/12/18 Range/Units 13:43 13:43 13:43 WBC 5.7 (4.3-11.1) K/mcL RBC 1.66 L (4.19-5.50) M/mcL Hgb 2.9 L* (12.9-16.9) g/dL Hct 11.7 L* (37.5-50.1) % MCV 70.5 L (83.0-100.0) fL MCH 17.5 L (28.0-33.3) pg MCHC 24.8 L (31.6-35.5) g/dL RDW 24.2 H (11.5-14.5) % Plt Count 159 (140-400) K/mcL MPV 9.5 (9.4-12.4) fL Immature Gran % 0.9 (0-4) % Seg Neutrophils % 94.3 % Lymphocytes % 3.2 % Monocytes % 1.4 % Eosinophils % 0.0 % Basophils % 0.2 % Neutrophils # 5.4 (1.6-8.9) K/mcL Lymphocytes # 0.2 L (0.6-4.6) K/mcL Monocytes # 0.1 (0.0-1.3) K/mcL Eosinophils # 0.0 (0.0-0.6) K/mcL Basophils # 0.0 (0.0-0.2) K/mcL Nucleated RBCs/100 WBC 0.4 H (0) /100 WBC Platelet Estimate Normal (Normal) Hypochromasia Present A (Not Present) Poikilocytosis 1+ A (Not Present) Anisocytosis 1+ A (Not Present) Sodium 134 L (136-145) mEq/L Potassium 3.8 (3.5-5.1) mEq/L Chloride 102 (98-107) mEq/L Carbon Dioxide 24 (23-29) mEq/L BUN 10 (6-20) mg/dL Creatinine 0.59 L (0.70-1.30) mg/dL Est GFR ( Amer) > 60 (> 60) Est GFR (Non-Af Amer) > 60 (> 60) BUN/Creatinine Ratio 17 (6-26) Glucose 133 H (70-105) mg/dL Calculated Osmolality 279 L (280-300) Calcium 9.4 (8.6-10.3) mg/dL Blood Type O POSITIVE Antibody Screen POSITIVE MTS Gel Crossmatch See Detail Attestation Statement - Attestation Attestation: I examined this patient and my medical decision-making was reviewed with the Resident Physician. I agree with the documented findings, disposition and treatment plan as described except to the extent set forth below. 27 year old male presents to the ED with complaints of fatigue and has a history of cystic hygromas from and states that his mouth is typically open and it dries out and has a slow bleed to it typucally which cause him to becom anemic. Patient states taht he feel faituged and pale again and thinks tht perhaps his hemoglobin is low down to 2. We will start the transfusion and then admit to medicine. If they are not comfortable with admitting to medicine because his airway risk than we may have to tranfer to [facility]. although he is not experincing chest pain, shortness of breath, or difficulty with swallowing. And there hernandez snot appear to be active bleeding however it is difficult to assess secondary to the size of his hygromas. Genna has stable vital signs and i believe it to be a chronic loss of blood. We will consutl with ENT initialy and then admit ot medicine.
[2018-04-12] MEDS ORDERED: Naloxone 0.4 MG/ML INJ IVP PRN (17:07)
--- NOTE | 2018-04-12 17:17 | Internal Med History&Physical ---
Date of Encounter: 04/12/18 Time of Encounter: 17:11 Internal Medicine - H&P: HPI Chief complaint: shortness of breath and Jaw pain Admitted From: Home Plans for Post Hospital Care: Home History of present illness: Mr. Simmons is a 27 year old male PMH significant for cystic hygroma, chronic bleeding from the tongue and chronic anemia. Patient presented to the ED due to shortness of breath, generalized weakness and Jaw pain, he reports that he has been having this symptoms for about 2 weeks. Denies seeing blood in his stool, but reports that due to his tongue being dry he has small bleeds from his tongue almost every day. He denies chest pain, nausea, vomiting as well as lightheadedness or dizziness. Reports that he used to see a ENT, but it has been a long time since he saw one last. In the ED patient found to have severe anemia, with Hb 2.9 & Hct 11.7. Patient hemodynamically stable BP 120;70 HR 90s, O2Sat >92 on room air. Past Med Surg Social Fam HX - Past Medical History Medical history: hypertension, other Additional medical history: cystic hygroma in the neck Psychiatric history: anxiety, depression - Past Surgical History Surgical History: other Additional surgical history: cyst removal. tongue reduction. laser surgery - Social History Smoking Status: Current every day smoker Smokeless Tobacco Status: No Alcohol use: rarely Drug use: marijuana - Family History Father Adopted: No Living Status: Still Living Hx Family Cardiac Disorders: No Hx Family Respiratory Disorders: No Hx Family Endocrine Disorder: Yes Internal Medicine - H&P: Meds Buprenorphine HCl/Naloxone HCl [Buprenorphin-Naloxon 8-2 mg Sl] 2 tab PO DAILY 04/12/18 [History] Allergy/AdvReac Type Severity Reaction Status Date / Time No Known Allergies Allergy Verified 04/11/18 10:13 All Systems PM: A 10-system review of systems was performed and is negative for pertinent findings except as documented above in the HPI. - Constitutional Constitutional: fatigue, weakness, no chills, no falls - EENT Eyes: no discharge, no floaters Nose, mouth and throat: dental pain, dry mouth, facial pain, mouth pain, neck mass, neck pain, no change in voice, no epistaxis, no lip swelling, no mouth lesions, no tongue swelling - Cardiovascular Cardiovascular ROS IM: no chest pain, no dyspnea, no irregular heart rhythm, no lightheadedness, no palpitations, no paroxysmal nocturnal dyspnea - Respiratory Respiratory: no cough, no dyspnea, no wheezing, no pain on inspiration, no chest congestion - Gastrointestinal Gastrointestinal: no abdominal pain, no diarrhea, no loose stools, no melena - Genitourinary Genitourinary ROS male: no dysuria, no flank pain, no hematuria, no testicular pain - Musculoskeletal Musculoskeletal ROS IM: no back pain - Integumentary Integumentary IM: no erythema, no rash - Neurological Neurological ROS: weakness, no focal weakness, no loss of vision, no tremor(s) - Psychiatric Psychiatric: no homicidal ideation, no visual hallucinations - Endocrine Endocrine IM: no cold intolerance - Hematologic/Lymphatic Hematologic/Lymphatic: no easy bruising - Allergic/Immunologic Additional comments: Rest of the review of system negative. - Constitutional Vitals: Temp Pulse Resp BP Pulse Ox 98.8 F 91 16 117/61 100 04/12/18 13:15 04/12/18 15:30 04/12/18 15:30 04/12/18 15:30 04/12/18 15:30 Exam: General: Alert and oriented x4. in mild distress due to jaw and facial pain Skin:Normal color, no rash, no lesions. HEENT: Macroglossia, petechial discoloration of the tongue, cervical lymphadenopathy. Pale conjunctiva. Cardiovascular: RRR, Normal S1 & S2, no rubs, murmurs or gallops. Lungs: Clear to auscultation bilaterally, no wheezes or crackles. Abdomen: Soft, non-tender, no rigidity. NABS in all 4 quadrants Extremities: No deformity, no edema or tenderness, no joint swelling or clubbing. Neurological: Normal cognition and motor skills. Rest of the physical exam is non contributory Internal Med - H&P Results - Labs CBC & Chem 7: 04/12/18 13:43 04/12/18 13:43 Labs: Short CBC 04/12/18 Range/Units 13:43 WBC 5.7 (4.3-11.1) K/mcL Hgb 2.9 L* (12.9-16.9) g/dL Hct 11.7 L* (37.5-50.1) % Plt Count 159 (140-400) K/mcL Neutrophils # 5.4 (1.6-8.9) K/mcL BMP 04/12/18 13:43 Sodium 134 L Potassium 3.8 Chloride 102 Carbon Dioxide 24 BUN 10 Creatinine 0.59 L Glucose 133 H Calcium 9.4 - Assessment and plan (1) Acute blood loss anemia Current Visit: No Status: Acute Assessment and plan: Severe anemia due to chronic blood lost from the tongue Plan Transfuse 2 units of PRBCs CBC 1 hour post transfusion Iron panel started on ferrous sulfate 325mg/PO daily Consider transfusing 1 more PRBC if CBC <7 post 2 units. (2) Cystic hygroma Current Visit: Yes Status: Chronic Assessment and plan: Patient presenting with jaw pain and worsening swelling. Protecting his airways. Plan started on IV steroids ENT consulted will follow recommendations. (3) DVT prophylaxis Current Visit: No Status: Acute Assessment and plan: No chemical DVT prophylaxis due to Tongue bleeding. Mechanical DVT prophylaxis. - Time Spent With Patient Total time spent is greater than 50% in coordination of care (as documented) at patient's floor/unit and/or counseling patient: 25 - 35 minutes
[2018-04-12] MEDS: traMADol 50 MG TABLET PO PRN (18:52)
[2018-04-12] MEDS: MethylPREDNISolone 40 MG/ML VIAL IVP SCH (18:53)
[2018-04-13] MEDS: traMADol 50 MG TABLET PO PRN ×2 (00:49→08:03)
[2018-04-13 05:50] LABS: Hematocrit 17.3 % (37.5-50.1); Immature Granulocytes % 0.9 % (0-4); Lymphocytes # 0.3 K/mcL (0.6-4.6); Lymphocytes % 5.8 %; Mean Corpuscular HGB Conc 28.3 g/dL (31.6-35.5); Mean Corpuscular Volume 74.2 fL (83.0-100.0); Mean Platelet Volume 9.5 fL (9.4-12.4); Monocytes # 0.3 K/mcL (0.0-1.3); Monocytes % 6.3 %; Neutrophils # 4.7 K/mcL (1.6-8.9); Nucleated Red Blood Cells 0.9 /100 WBC (0); Platelet Count 186 K/mcL (140-400); Red Blood Count 2.33 M/mcL (4.19-5.50)
[2018-04-13 06:12] LABS: % Iron Saturation 3 % (20-55); BUN/Creatinine Ratio 20 (6-26); Blood Urea Nitrogen 10 mg/dL (6-20); Calcium 9.2 mg/dL (8.6-10.3); Carbon Dioxide 26 mEq/L (23-29); Chloride 103 mEq/L (98-107); Glucose 121 mg/dL (70-105); Iron 16 mcg/dL (65-175); Magnesium 2.2 mg/dL (1.6-2.6); Osmolality,Calculated 278 (280-300); Phosphorous 4.1 mg/dL (2.7-4.5); Sodium 134 mEq/L (136-145); Transferrin 334 mg/dL (203-362); eGFR For Non-African Americans > 60 (> 60)
[2018-04-13 06:17] LABS: Hemoglobin 4.9 g/dL (12.9-16.9)
[2018-04-13 06:18] LABS: Anisocytosis 1+ (Not Present); Hypochromasia Present (Not Present); Platelet Estimate Normal (Normal)
[2018-04-13] MEDS: MethylPREDNISolone 40 MG/ML VIAL IVP SCH ×2 (06:28→17:14)
--- NOTE | 2018-04-13 08:38 | ENT - Consult Note ---
<Jerri Posada - Last Filed: 04/13/18 10:38> Date of Encounter: 04/13/18 Time of Encounter: 07:45 Assessment and Plan (1) Cystic hygroma Current Visit: No Status: Acute Patient with known history of cystic hygroma, previously treated at [facility]. Patient currently with active flare. Patient seen and examined at bedside today by this provider and Dr. Dupree ENT surgeon. Nasolaryngoscopy performed today which, demonstrated patent airway. Patient with No respiratory distress, stridor, or increased work of breathing. Patient reports no symptoms of dysphagia or odynophagia. Patient with control of oral secretions, reports decreased sensation of edema with administration of IV steroids. No active oral bleeding or bleeding of the tongue noted at this time. Recommend continuation of IV steroids at this time. Patient should be monitored closely for respiratory distress. Will order Biotene mouth spray to aid in increasing oral moisture and decreasing episodes of oral bleeding. will also order chlorhexidine mouth rinse to be used twice a day for oral mouth care. Discussed with patient follow up with [facility] upon discharge. No further ENT intervention is warranted at this time. May contact ENT department as needed. All questions answered. (2) Acute blood loss anemia Current Visit: No Status: Acute Patient currently with 2 units of packed red blood cells ordered. Hospitalist currently managing. History of Present Illness Consult date: 04/13/18 Reason for ENT Consult: airway complication, other (cystic hygroma) Requesting physician: Parker Rodriguez History of present illness: Mr. Simmons is a pleasant 27-year-old male admitted with past medical history of cystic hygroma, chronic bleeding from the tongue, and chronic anemia. Patient reports he previously has followed with [facility] for this issue. Patient presented to the ED due to shortness of breath, generalized weakness and Jaw pain. Patient reports his symptoms have been steadily progressing over the course of 2 weeks, with his bleeding worsening over the last few days. Patient was noted to have acute anemia upon arrival to the ED and subsequently admitted. ENT was consulted for cystic hygroma and to rule out any associated airway complications. Past Med Surg Social Fam HX - Past Medical History Medical history: hypertension, other Additional medical history: cystic hygroma in the neck Psychiatric history: anxiety, depression - Past Surgical History Surgical History: other Additional surgical history: cyst removal. tongue reduction. laser surgery - Social History Smoking Status: Current every day smoker Packs per day: 1/2 Smokeless Tobacco Status: No Alcohol use: rarely Drug use: marijuana - Family History Father Adopted: No Living Status: Still Living Hx Family Cardiac Disorders: No Hx Family Respiratory Disorders: No Hx Family Cancer: No Hx Family Endocrine Disorder: Yes Medications and Allergies Buprenorphine HCl/Naloxone HCl [Buprenorphin-Naloxon 8-2 mg Sl] 2 tab PO DAILY 04/12/18 [History] Allergy/AdvReac Type Severity Reaction Status Date / Time No Known Allergies Allergy Verified 04/11/18 10:13 ENT - ROS - EENT Nose, mouth and throat: other (cystic hygroma) ENT Exam Initial Vital Signs Temp Pulse Resp BP Pulse Ox 98.8 F 99 18 147/79 100 04/12/18 12:56 04/12/18 12:56 04/12/18 12:56 04/12/18 12:56 04/12/18 12:56 - General physical appearance well developed, well nourished, no distress, no pain - Eyes PERRL, normal ocular movement - ENT CN 2-12 grossly intact, Other (Ears: Bilateral external ear canals clear, TM intact and normal bilaterally. Nose: Nares patent bilaterally, mucosa without lesion, septum deviated to the right posteriorly. Inferior turbinate normal bilaterally. Oral: Tongue grossly edematous, firm, ulcerated lesions noted to bilateral sides of the tongue, without active bleeding at this time. Pharynx: Uvula remains visible on oral exam.) - Neck trachea midline, other (Firmness to bilateral jawline, worse on left from cystic hygroma. Mild tenderness with palpation. ) - Respiratory normal expansion, normal respiratory effort - Neurologic CN 2-12 grossly intact - Musculoskeletal normal gait, normal posture - Psychiatric oriented to time, oriented to person, oriented to place, speech is normal, other (speech is slightly muffled, however understandable) Exam Initial Vital Signs Temp Pulse Resp BP Pulse Ox 98.8 F 99 18 147/79 100 04/12/18 12:56 04/12/18 12:56 04/12/18 12:56 04/12/18 12:56 04/12/18 12:56 Results - Labs 04/13/18 05:22 04/13/18 05:22 Abnormal lab results RBC 2.33 M/mcL (4.19-5.50) L 04/13/18 05:22 Hgb 4.9 g/dL (12.9-16.9) L* D 04/13/18 05:22 Hct 17.3 % (37.5-50.1) L 04/13/18 05:22 MCV 74.2 fL (83.0-100.0) L 04/13/18 05:22 MCH 21.0 pg (28.0-33.3) L 04/13/18 05:22 MCHC 28.3 g/dL (31.6-35.5) L 04/13/18 05:22 RDW 22.0 % (11.5-14.5) H 04/13/18 05:22 Lymphocytes # 0.3 K/mcL (0.6-4.6) L 04/13/18 05:22 Nucleated RBCs/100 WBC 0.9 /100 WBC (0) H 04/13/18 05:22 Hypochromasia Present (Not Present) A 04/13/18 05:22 Poikilocytosis 1+ (Not Present) A 04/12/18 13:43 Anisocytosis 1+ (Not Present) A 04/13/18 05:22 Sodium 134 mEq/L (136-145) L 04/13/18 05:22 Creatinine 0.51 mg/dL (0.70-1.30) L 04/13/18 05:22 Glucose 121 mg/dL (70-105) H 04/13/18 05:22 Calculated Osmolality 278 (280-300) L 04/13/18 05:22 Iron 16 mcg/dL (65-175) L 04/13/18 05:22 % Saturation 3 % (20-55) L 04/13/18 05:22 Diabetes panel 04/12/18 04/13/18 Range/Units 13:43 05:22 Sodium 134 L 134 L (136-145) mEq/L Potassium 3.8 4.0 (3.5-5.1) mEq/L Chloride 102 103 (98-107) mEq/L Carbon Dioxide 24 26 (23-29) mEq/L BUN 10 10 (6-20) mg/dL Creatinine 0.59 L 0.51 L (0.70-1.30) mg/dL Glucose 133 H 121 H (70-105) mg/dL Calcium 9.4 9.2 (8.6-10.3) mg/dL Calcium panel 04/12/18 04/13/18 Range/Units 13:43 05:22 Calcium 9.4 9.2 (8.6-10.3) mg/dL Phosphorus 4.1 (2.7-4.5) mg/dL Pituitary panel 04/12/18 04/13/18 Range/Units 13:43 05:22 Sodium 134 L 134 L (136-145) mEq/L Potassium 3.8 4.0 (3.5-5.1) mEq/L Chloride 102 103 (98-107) mEq/L Carbon Dioxide 24 26 (23-29) mEq/L BUN 10 10 (6-20) mg/dL Creatinine 0.59 L 0.51 L (0.70-1.30) mg/dL Glucose 133 H 121 H (70-105) mg/dL Calcium 9.4 9.2 (8.6-10.3) mg/dL Adrenal panel 04/12/18 04/13/18 Range/Units 13:43 05:22 Sodium 134 L 134 L (136-145) mEq/L Potassium 3.8 4.0 (3.5-5.1) mEq/L Chloride 102 103 (98-107) mEq/L Carbon Dioxide 24 26 (23-29) mEq/L BUN 10 10 (6-20) mg/dL Creatinine 0.59 L 0.51 L (0.70-1.30) mg/dL Glucose 133 H 121 H (70-105) mg/dL Calcium 9.4 9.2 (8.6-10.3) mg/dL All other labs normal. Consult Discharge Plan - Plan Referrals: Kristyn Weaver, [facility] [Primary Care Provider] - (faxed over request for an appointment on 04-13-18 @ [phone]) <Jordan Dupree - Last Filed: 04/13/18 13:37> Assessment and Plan (1) Cystic hygroma Current Visit: No Status: Acute (2) Acute blood loss anemia Current Visit: Yes Status: Acute ENT Exam Initial Vital Signs Temp Pulse Resp BP Pulse Ox 98.8 F 99 18 147/79 100 04/12/18 12:56 04/12/18 12:56 04/12/18 12:56 04/12/18 12:56 04/12/18 12:56 Exam Initial Vital Signs Temp Pulse Resp BP Pulse Ox 98.8 F 99 18 147/79 100 04/12/18 12:56 04/12/18 12:56 04/12/18 12:56 04/12/18 12:56 04/12/18 12:56 Results - Labs 04/13/18 05:22 04/13/18 05:22 Abnormal lab results RBC 2.33 M/mcL (4.19-5.50) L 04/13/18 05:22 Hgb 4.9 g/dL (12.9-16.9) L* D 04/13/18 05:22 Hct 17.3 % (37.5-50.1) L 04/13/18 05:22 MCV 74.2 fL (83.0-100.0) L 04/13/18 05:22 MCH 21.0 pg (28.0-33.3) L 04/13/18 05:22 MCHC 28.3 g/dL (31.6-35.5) L 04/13/18 05:22 RDW 22.0 % (11.5-14.5) H 04/13/18 05:22 Lymphocytes # 0.3 K/mcL (0.6-4.6) L 04/13/18 05:22 Nucleated RBCs/100 WBC 0.9 /100 WBC (0) H 04/13/18 05:22 Hypochromasia Present (Not Present) A 04/13/18 05:22 Poikilocytosis 1+ (Not Present) A 04/12/18 13:43 Anisocytosis 1+ (Not Present) A 04/13/18 05:22 Sodium 134 mEq/L (136-145) L 04/13/18 05:22 Creatinine 0.51 mg/dL (0.70-1.30) L 04/13/18 05:22 Glucose 121 mg/dL (70-105) H 04/13/18 05:22 Calculated Osmolality 278 (280-300) L 04/13/18 05:22 Iron 16 mcg/dL (65-175) L 04/13/18 05:22 % Saturation 3 % (20-55) L 04/13/18 05:22 Diabetes panel 04/12/18 04/13/18 Range/Units 13:43 05:22 Sodium 134 L 134 L (136-145) mEq/L Potassium 3.8 4.0 (3.5-5.1) mEq/L Chloride 102 103 (98-107) mEq/L Carbon Dioxide 24 26 (23-29) mEq/L BUN 10 10 (6-20) mg/dL Creatinine 0.59 L 0.51 L (0.70-1.30) mg/dL Glucose 133 H 121 H (70-105) mg/dL Calcium 9.4 9.2 (8.6-10.3) mg/dL Calcium panel 04/12/18 04/13/18 Range/Units 13:43 05:22 Calcium 9.4 9.2 (8.6-10.3) mg/dL Phosphorus 4.1 (2.7-4.5) mg/dL Pituitary panel 04/12/18 04/13/18 Range/Units 13:43 05:22 Sodium 134 L 134 L (136-145) mEq/L Potassium 3.8 4.0 (3.5-5.1) mEq/L Chloride 102 103 (98-107) mEq/L Carbon Dioxide 24 26 (23-29) mEq/L BUN 10 10 (6-20) mg/dL Creatinine 0.59 L 0.51 L (0.70-1.30) mg/dL Glucose 133 H 121 H (70-105) mg/dL Calcium 9.4 9.2 (8.6-10.3) mg/dL Adrenal panel 04/12/18 04/13/18 Range/Units 13:43 05:22 Sodium 134 L 134 L (136-145) mEq/L Potassium 3.8 4.0 (3.5-5.1) mEq/L Chloride 102 103 (98-107) mEq/L Carbon Dioxide 24 26 (23-29) mEq/L BUN 10 10 (6-20) mg/dL Creatinine 0.59 L 0.51 L (0.70-1.30) mg/dL Glucose 133 H 121 H (70-105) mg/dL Calcium 9.4 9.2 (8.6-10.3) mg/dL All other labs normal. - Attending Attestation I saw this patient should not in a [id number] examination independently, and this is a 27-year-old male with a history of cystic hygroma since he has undergone previous surgeries [facility] as well as sclerotherapy. The patient has a history of fatigue and weakness and was seen in the emergency department and his hemoglobin was found to be 2.6. The patient noted to have bleeding from his tongue as it is dry and constantly exposed to air. The patient has been admitted to the hospital for a same type of clinical scenario approximately 6 months ago. Today the patient is not complaining of any dysphagia, difficulty tolerating his secretions, or difficulty breathing. On physical exam there is no active bleeding at the tongue and the patient has a large cystic hygroma involving the tongue and lower face. Respiratory effort is normal. NPL scope was performed by me and did not demonstrate any airway compromise. At this time we will have the patient continue steroid therapy as well as chlorhexidine application to the tongue twice a day and oral moisturizer every 2 hours. There is no evidence of active bleeding and no cauterization was performed at this time. The patient is okay to follow up with [facility] as scheduled.
[2018-04-13] MEDS: Chlorhexidine Rinse 15 ML MOUTHWASH MM SCH ×2 (10:57→19:44)
[2018-04-13] MEDS ORDERED: 0.9 % Sodium Chloride 250 ML ONE (11:20)
--- NOTE | 2018-04-13 13:17 | Internal Med Progress Note ---
Hospitalist Progress Note - Encounter Date of Encounter: 04/13/18 Time of Encounter: 10:15 - Subjective Interval History: Patient is lying in bed. Comfortable. Denies any new complaints at this time. Has not had any further bleeding. Reports dryness in his mouth. No chest pain or palpitations. No shortness of breath. - Exam Vitals: Temp Pulse Resp BP Pulse Ox 97.5 F L 87 18 124/79 96 04/13/18 11:13 04/13/18 12:13 04/13/18 12:13 04/13/18 12:13 04/13/18 11:59 Exam: General: Patient is alert, no acute distress, oriented x 3 ENT: Cystic hygroma in the neck with enlarged tongue with edema. No overt bleeding noted. Mucous membranes are dry. Respiratory: Good respiratory effort. Normal breath sounds. No wheezing or crackles. Cardiovascular: Regular rate and rhythm. s1 and s2 normal No clicks, rubs, gallops, or murmurs. No pedal edema Abdomen: Abdomen is soft, nontender. Bowel sounds are present Musculoskeletal: Spontaneously moving all extremities - Assessment and Plan (1) Acute blood loss anemia Current Visit: Yes Status: Acute Assessment and Plan: Hemoglobin 4.9 this morning. We will transfuse 2 more units of PRBC. Monitor closely. Recheck H&H later today. High risk for complications. (2) Cystic hygroma Current Visit: Yes Status: Chronic Assessment and Plan: Chronic. ENT input appreciated. We will place patient on biotin every 2 hours. Continue steroids. (3) DVT prophylaxis Current Visit: Yes Status: Acute Assessment and Plan: With SCDs - Time Spent with Patient Total time spent is greater than 50% in coordination of care (as documented) at patient's floor/unit and/or counseling patient: Internal Medicine: Result - Labs CBC & Chem 7: 04/13/18 05:22 04/13/18 05:22 Labs: Short CBC 04/12/18 04/13/18 Range/Units 13:43 05:22 WBC 5.7 5.4 (4.3-11.1) K/mcL Hgb 2.9 L* 4.9 L* D (12.9-16.9) g/dL Hct 11.7 L* 17.3 L (37.5-50.1) % Plt Count 159 186 (140-400) K/mcL Neutrophils # 5.4 4.7 (1.6-8.9) K/mcL BMP 04/12/18 04/13/18 13:43 05:22 Sodium 134 L 134 L Potassium 3.8 4.0 Chloride 102 103 Carbon Dioxide 24 26 BUN 10 10 Creatinine 0.59 L 0.51 L Glucose 133 H 121 H Calcium 9.4 9.2 Consult Discharge Plan - Plan Referrals: Kristyn Weaver, [employer]ATE [Primary Care Provider] - (faxed over request for an appointment on 04-13-18 @ [phone])
--- NOTE | 2018-04-13 14:28 | ENT - Procedure Note ---
Date of procedure: 04/13/18 Pre-op diagnosis: Cystic Hygroma, Evaluate for Airway Patency Post-op diagnosis: same Procedure: Pre-operative Diagnosis: --Cystic Hygroma --Concern for airway compromise Post-operative Diagnosis Same Anesthesia: Topically applied 4% lidocaine with 0.05% oxymetazoline in a 50-50 mixture Surgeon: Jordan Dupree DO Procedure: Flexible nasolaryngoscopy CPT code: 09831 Indication for Procedure: This is a 27-year-old gentleman who presented to the emergency department with fatigue. The patient has a history of cystic hygroma since . The patient was noted to have a hemoglobin of 2.6 and was admitted into the hospital for blood transfusion. ENT was consulted as there was some concern for airway patency. The risks fits and alternatives to the NPL scope were discussed with the patient who elected to proceed. Verbal consent was obtained. Procedure in detail: After suitable time for the topically applied 50-50 mixture of 4% topical lidocaine and 1:1000 epinephrine anesthetic to take effect. The flexible nasal laryngoscope was used to examine both sides of the nasal cavity. The right side the nasal cavity appeared more patent and therefore the nasal laryngoscope was inserted through the nasal cavity past the nasopharynx oropharynx of the hypopharynx providing an excellent view the laryngeal structures. Once the exam was completed the scope was removed the patient tolerated the procedure well without complication or incident. Findings: The base of the tongue is enlarged due to the cystic hygroma however this is not from icing airway patency No thick endolaryngeal mucus noted. No mucosal irregularity of the lingual laryngeal surface of the epiglottis, the piriform sinuses, the aryepiglottic folds, the anterior commissure, the posterior commissure, the arytenoid mucosa or the false vocal folds. The true vocal folds display normal excursion during phonation and inhalation. There are no polyps, nodules or Timmy's edema seen on the true vocal folds. No evidence of Inter-arytenoid erythema, edema, or pachydermia. Impression: Airway grossly patent Anesthesia: none Surgeon: Jordan Dupree Was there an administrative sales assistant present: No Estimated blood loss (cc): 0 Specimens collected: None Condition: stable
[2018-04-13] MEDS: *HR* Buprenorphine HCl 2 MG SUBLINGUAL TABLET SL SCH ×2 (15:57→19:44)
[2018-04-13] MEDS: Saliva Stimulant 100ml BOTTLE PO SCH ×5 (17:10→19:45)
[2018-04-13 18:22] LABS: Hematocrit 23.2 % (37.5-50.1)
[2018-04-13 18:23] LABS: Hemoglobin 6.9 g/dL (12.9-16.9)
[2018-04-14] MEDS: MethylPREDNISolone 40 MG/ML VIAL IVP SCH (04:23)
[2018-04-14] MEDS: Saliva Stimulant 100ml BOTTLE PO SCH ×8 (04:25→15:25)
[2018-04-14 05:20] LABS: Basophils % 0.1 %; Hematocrit 23.3 % (37.5-50.1); Hemoglobin 6.9 g/dL (12.9-16.9); Immature Granulocytes % 0.9 % (0-4); Lymphocytes # 0.6 K/mcL (0.6-4.6); Lymphocytes % 6.3 %; Mean Corpuscular HGB Conc 29.6 g/dL (31.6-35.5); Mean Corpuscular Hemoglobin 22.5 pg (28.0-33.3); Mean Corpuscular Volume 76.1 fL (83.0-100.0); Mean Platelet Volume 8.9 fL (9.4-12.4); Monocytes # 0.7 K/mcL (0.0-1.3); Monocytes % 7.4 %; Neutrophils # 8.3 K/mcL (1.6-8.9); Platelet Count 191 K/mcL (140-400); Red Blood Count 3.06 M/mcL (4.19-5.50); Red Cell Distribution Width 22.4 % (11.5-14.5); Segmented Neutrophils % 85.3 %
[2018-04-14] MEDS: Chlorhexidine Rinse 15 ML MOUTHWASH MM SCH (07:59)
[2018-04-14] MEDS ORDERED: *HR* Buprenorphine HCl 8 MG TAB.SUBL SL SCH (09:00)
--- NOTE | 2018-04-14 11:38 | Discharge Summary ---
- NOTES TO OUTPATIENT PROVIDER Notes to Outpatient Provider: Patient with a history of cystic hygroma with chronically exposed tongue who was hospitalized here with anemia with a hemoglobin of 2.9. Patient has history of chronic bleeding due to drying of tongue. He received 5 units of PRBC here with improvement in his hemoglobin. Chelle pineda was evaluated by ENT and recommended Biotene and chlorhexidine swabs to keep his mouth wet and to prevent drying of skin and tongue. He has not had any further bleeding. His hemoglobin levels have been stable and he will be discharged today after completing his blood transfusion. He will follow up with ENT at [facility] for further management. He will be discharged on a tapering course of steroids. Orders not resulted at time of discharge: Pending orders 04/12/18 13:43 Red Blood Cells [BBK] Stat Type and Screen [BBK] Stat Date of Encounter: 04/14/18 Time of Encounter: 11:35 - Discharge Diagnosis (1) Acute blood loss anemia Priority: Primary Status: Acute (2) Cystic hygroma Priority: Secondary Status: Chronic (3) DVT prophylaxis Priority: Secondary Status: Acute Hospital course: Mr. Simmons is a 27 year old male patient with a history of cystic hygroma with chronically exposed tongue who was hospitalized here with anemia with a hemoglobin of 2.9. Patient has history of chronic bleeding due to drying of tongue. He received 5 units of PRBC here with improvement in his hemoglobin. He was evaluated by ENT and recommended Biotene and chlorhexidine swabs to keep his mouth wet and to prevent drying of skin and tongue. He has not had any further bleeding. His hemoglobin levels have been stable and he will be discharged today after completing his blood transfusion. He will follow up with ENT at [facility] for further management. He will be discharged on a tapering course of steroids. Patient does have significant iron deficiency and has been placed on iron supplements. Discharge discussed with: patient, nurse - Time Spent with Patient Total time spent providing and/or coordinating discharge services: Greater than 30 minutes (34 min) - Discharge Medications Prescriptions: Chlorhexidine Rinse 15 ml MM BID #1 mouthwash Docusate [Colace] 100 mg PO BID #60 capsule Ferrous Sulfate 325 mg PO BIDWM #60 tablet predniSONE [PredniSONE] 10 mg PO DAILY 8 Days #20 tablet Vits96/Iron Fum/Folic [ Tablet] 1 each PO DAILY #30 tablet Saliva Stimulant [Biotene Moisturizing Rinse] 1 spray PO Q2H #5 bottle Home Medications: Buprenorphine HCl/Naloxone HCl [Buprenorphin-Naloxon 8-2 mg Sl] 2 tab PO DAILY 04/12/18 [History] Chlorhexidine Rinse 15 ml MM BID #1 mouthwash 04/14/18 [Rx] Docusate [Colace] 100 mg PO BID #60 capsule 04/14/18 [Rx] Ferrous Sulfate 325 mg PO BIDWM #60 tablet 04/14/18 [Rx] Vits96/Iron Fum/Folic [ Tablet] 1 each PO DAILY #30 tablet 04/14/18 [Rx] Saliva Stimulant [Biotene Moisturizing Rinse] 1 spray PO Q2H #5 bottle 04/14/18 [Rx] predniSONE [PredniSONE] 10 mg PO DAILY 8 Days #20 tablet 04/14/18 [Rx] Allergies/Adverse Reactions: Allergy/AdvReac Type Severity Reaction Status Date / Time No Known Allergies Allergy Verified 04/11/18 10:13 Date of admission: 04/14/18 08:46 Primary care physician: Kristyn Weaver Consults: 04/12/18 17:05 Consult to ENT [CONS] Stat Consulting Provider: ENT Bekah Reason for Consult: Hx of cystic hygromas. Presenting with Symptomatic anemia and painful glands. Call Completed: No Discharging clinician: Antony Swan Anticipated date of discharge: 04/14/18 - Constitutional Vitals: Temp Pulse Resp BP Pulse Ox 97.8 F 67 18 102/64 97 04/14/18 11:24 04/14/18 11:24 04/14/18 11:24 04/14/18 11:24 04/14/18 11:24 General appearance: Present: cooperative, A&O X 3, pleasant, answers questions appropriately Exam: . - ENT ENT exam: Present: mucous membranes moist Additional comments: Tongue exposed. No overt bleeding. - Respiratory Respiratory exam: Present: CTAB. Absent: accessory muscle use, rales, rhonchi, wheezes - Cardiovascular Cardiovascular exam: Present: RRR, +S1, +S2. Absent: diastolic murmur, gallop, rubs, systolic murmur - Patient Status Disposition: Home, Self-Care Condition: Good Functional capacity at discharge: independent ambulation Overall status at discharge: patient is progressing back to baseline - Discharge Instructions Instructions: Anemia (GEN) Follow Up With: Kristyn Weaver CNP [Primary Care Provider] - (faxed over request for an appointment on 04-13-18 @ 1871) Additional Instructions: Follow-up with [facility] for further management - Diet and Activity Activity: increase activity as tolerated Diet: advance to your usual diet
[2018-04-14] MEDS ORDERED: 0.9 % Sodium Chloride 250 ML ONE (12:04)
[2018-04-14 16:25] VITALS: BP 119/67
== END 2018-04-14 17:51 | disposition home or self-care (01) | DRG 663 ==
LOC: EMEROOARM 12:52 → INTOOBSV 17:08 → SUATTDRO 17:08 → 2NNU 17:08
PROVIDERS: ADMIT Internal Medicine; ATTEND Internal Medicine

== ENCOUNTER 2018-11-14 12:29 | Inpatient (IN) ==
[2018-11-14 13:50] LABS: BUN/Creatinine Ratio 15 (6-26); Blood Urea Nitrogen 9 mg/dL (6-20); Carbon Dioxide 29 mEq/L (23-29); Chloride 100 mEq/L (98-107); Glucose 95 mg/dL (70-105); Osmolality,Calculated 280 (280-300); Potassium 3.5 mEq/L (3.5-5.1); Sodium 136 mEq/L (136-145); eGFR For Non-African Americans > 60 (> 60)
[2018-11-14 13:56] LABS: Eosinophils # 0.1 K/mcL (0.0-0.6); Eosinophils % 2.4 %; Immature Granulocytes % 0.3 % (0-4); Immature Platelets 2.4 % (1.1-6.1); Lymphocytes # 0.4 K/mcL (0.6-4.6); Lymphocytes % 13.7 %; Mean Corpuscular Hemoglobin 17.5 pg (28.0-33.3); Mean Corpuscular Volume 69.8 fL (83.0-100.0); Mean Platelet Volume 9.2 fL (9.4-12.4); Monocytes # 0.2 K/mcL (0.0-1.3); Monocytes % 8.2 %; Neutrophils # 2.2 K/mcL (1.6-8.9); Platelet Count 182 K/mcL (140-400); Red Blood Count 2.12 M/mcL (4.19-5.50); Segmented Neutrophils % 75.4 %
[2018-11-14 14:01] LABS: INR 1.3; Prothrombin Time 14.4 Seconds (9.4-12.1)
[2018-11-14 14:03] LABS: Hematocrit 14.8 % (37.5-50.1); Hemoglobin 3.7 g/dL (12.9-16.9)
[2018-11-14 14:04] LABS: Activated Partial Thrombo Time 36.1 Seconds (26.0-36.0)
--- NOTE | 2018-11-14 14:16 | Emergency Department Note ---
Disposition Clinical Impression: Chronic anemia, Cystic hygroma Anemia Qualifiers: Anemia type: unspecified type Qualified Code(s): D64.9 - Anemia, unspecified Disposition: Home, Self-Care Condition: Serious Referrals: Kristyn Weaver CNP [Primary Care Provider] - Forms: Work/School Release, ED Satisfaction Letter Time of Disposition: 14:18 General Adult HPI - General Chief complaint: ED Recheck/Abnormal Lab/Rx Stated complaint: low hemoglobin Time Seen by Provider: 11/14/18 12:49 Source: patient Limitations: no limitations Nursing Notes Reviewed: Yes Vital Signs Reviewed: Yes - History of Present Illness HPI Narrative: 27-year-old male presents emergency Department with concerns of weakness and fatigue. Patient states he generally feels this way of every become significan tly anemic. Patient has a history of a cystic hygroma which is caused significant enlargement and protrusion of his tongue. Patient has a slow chronic bleed to the tongue which is been evaluated multiple times in the past was recently at [facility] within the past 2 years. Patient had refused surgical i ntervention at that time. Today the patient is pale, weak, fatigued. Patient has been admitted to this hospital for his anemia in the past. He denies recent trauma, nausea, vomiting, diarrhea, chest pain, palpitations, syncopal episode. Pain Scale: 8 - Related Data Home Medications Medication Instructions Recorded Confirmed Buprenorphine HCl/Naloxone HCl 2 tab PO DAILY 04/12/18 04/12/18 [Buprenorphin-Naloxon 8-2 mg Sl] Previous Rx's Medication Instructions Recorded Chlorhexidine Rinse 15 ml MM BID #1 mouthwash 04/14/18 Docusate [Colace] 100 mg PO BID #60 capsule 04/14/18 Ferrous Sulfate 325 mg PO BIDWM #60 tablet 04/14/18 Vits96/Iron Fum/Folic 1 each PO DAILY #30 tablet 04/14/18 [ Tablet] Saliva Stimulant [Biotene 1 spray PO Q2H #5 bottle 04/14/18 Moisturizing Rinse] predniSONE [PredniSONE] See Taper PO DAILY #18 tablet 05/16/18 Allergies Allergy/AdvReac Type Severity Reaction Status Date / Time No Known Allergies Allergy Verified 11/14/18 12:36 All systems ED: reviewed and negative except as stated. Review of Systems: As Per HPI Past Medical History - Past Medical History Attestation: Yes The following information was validated with the patient. Source: patient Medical history: Reports: hypertension, other Surgical history: Reports: other Psychiatric history: Reports: anxiety, depression - Social History Smoking Status: Current every day smoker Smokeless Tobacco Status: No Alcohol use: Reports: none Drug use: Reports: marijuana Physical Exam General: Alert and in no acute distress Skin: Warm, dry, intact, pale Head: Normocephalic and atraumatic Neck: Supple, trachea midline and no tenderness ENT: Tongue a significantly enlarged with area of excoriated and bleeding scan on the anterior aspect of the tongue. No other areas of obvious bleeding or pain during the examination. Deformity to the submandibular area, bilateral lower mandible secondary to tumor size. Cardiovascular: RRR, no murmur, normal perfusion Respiratory: CTAB, no wheezing, cough, or respiratory distress Musculoskeletal: Normal strength, no tenderness, swelling or deformity GI: Soft, nontender, nondistended. Bowel sounds present Neuro: A&O to person, place, time and situation. No focal deficits noted on exam Psychiatric: cooperative and appropriate mood and affect. - General Limitations: no limitations General appearance: alert, in no apparent distress Course Vital Signs Temperature 98 F 11/14/18 12:36 Pulse Rate 82 11/14/18 12:36 Respiratory Rate 18 11/14/18 12:36 Blood Pressure 133/75 11/14/18 12:36 O2 Sat by Pulse Oximetry 100 11/14/18 12:36 Temperature 98 F 11/14/18 12:47 Pulse Rate 92 11/14/18 14:11 Respiratory Rate 16 11/14/18 14:11 Blood Pressure 117/48 11/14/18 14:11 O2 Sat by Pulse Oximetry 100 11/14/18 14:11 Oxygen Delivery Oxygen Delivery Room Air Medical Decision Making - MDM Narrative Medical decision making narrative: Hemoglobin is 3.7, he has been lower than this the past. He is definitively symptomatic with this. He will receive red blood cell transfusion and will be admitted to the hospitalist for further transfusion. He does have a significantly elevated tongue however he has been admitted to this hospital in the past with similar sized tongue. - Medical Records Medical records reviewed: Yes I reviewed the patient's medical records. - Lab Data Lab results reviewed: Yes I reviewed the patient's lab results. Result diagrams: 11/14/18 13:01 11/14/18 13:01 Lab Results 11/14/18 11/14/18 11/14/18 Range/Units 13:01 13:01 13:01 WBC 2.9 L (4.3-11.1) K/mcL RBC 2.12 L (4.19-5.50) M/mcL Hgb 3.7 L* (12.9-16.9) g/dL Hct 14.8 L* (37.5-50.1) % MCV 69.8 L (83.0-100.0) fL MCH 17.5 L (28.0-33.3) pg MCHC 25.0 L (31.6-35.5) g/dL RDW 20.0 H (11.5-14.5) % Plt Count 182 (140-400) K/mcL MPV 9.2 L (9.4-12.4) fL Immature Plt Fraction 2.4 (1.1-6.1) % PT 14.4 H (9.4-12.1) Seconds INR 1.3 APTT 36.1 H (26.0-36.0) Seconds Sodium 136 (136-145) mEq/L Potassium 3.5 (3.5-5.1) mEq/L Chloride 100 (98-107) mEq/L Carbon Dioxide 29 (23-29) mEq/L BUN 9 (6-20) mg/dL Creatinine 0.59 L (0.70-1.30) mg/dL Est GFR ( Amer) > 60 (> 60) Est GFR (Non-Af Amer) > 60 (> 60) BUN/Creatinine Ratio 15 (6-26) Glucose 95 (70-105) mg/dL Calculated Osmolality 280 (280-300) Calcium 9.0 (8.6-10.3) mg/dL Blood Type Antibody Screen MTS Gel Crossmatch 11/14/18 Range/Units 13:01 WBC (4.3-11.1) K/mcL RBC (4.19-5.50) M/mcL Hgb (12.9-16.9) g/dL Hct (37.5-50.1) % MCV (83.0-100.0) fL MCH (28.0-33.3) pg MCHC (31.6-35.5) g/dL RDW (11.5-14.5) % Plt Count (140-400) K/mcL MPV (9.4-12.4) fL Immature Plt Fraction (1.1-6.1) % PT (9.4-12.1) Seconds INR APTT (26.0-36.0) Seconds Sodium (136-145) mEq/L Potassium (3.5-5.1) mEq/L Chloride (98-107) mEq/L Carbon Dioxide (23-29) mEq/L BUN (6-20) mg/dL Creatinine (0.70-1.30) mg/dL Est GFR ( Amer) (> 60) Est GFR (Non-Af Amer) (> 60) BUN/Creatinine Ratio (6-26) Glucose (70-105) mg/dL Calculated Osmolality (280-300) Calcium (8.6-10.3) mg/dL Blood Type O POSITIVE Antibody Screen POSITIVE MTS Gel Crossmatch See Detail
[2018-11-14 15:04] LABS: Anisocytosis 1+ (Not Present); Hypochromasia Present (Not Present); Platelet Estimate Normal (Normal)
[2018-11-14 15:05] LABS: Microcytosis Present (Not Present)
[2018-11-14] MEDS ORDERED: Naloxone 0.4 MG/ML INJ IVP PRN (17:59)
[2018-11-14 18:28] LABS: Hematocrit 16.1 % (37.5-50.1)
[2018-11-14] MEDS ORDERED: 0.9 % Sodium Chloride 500 ML ONE (19:14)
--- NOTE | 2018-11-14 20:00 | Internal Med History&Physical ---
Date of Encounter: 11/14/18 Time of Encounter: 19:55 Internal Medicine - H&P: HPI Chief complaint: Fatigue , weakness for a couple History of present illness: Mr. Simmons is a 27 year old male with a pmh of cystic hygroma with recurrent bleeds, last here in march 2018 where he was severely anemic and transfused PRBC and was seen by ENT. He was supposed to have followed up with ENT at [facility] for possible surgery but says he hasn't followed up. He comes in with fatigue, dizziness which he says has been going for a couple of weeks and is gradually getting worse. He denies any episodes of passing out. HE says this is similar to how he feels when he is anemic and that's why he came to the Er. In the ER, he was noted to have a hemglobin of 3.7 and he is being transfused 3 units PRBC and he is being admitted for further management Past Med Surg Social Fam HX - Past Medical History Medical history: hypertension, other Additional medical history: cystic hygroma in the neck Psychiatric history: anxiety, depression - Past Surgical History Surgical History: other Additional surgical history: cyst removal. tongue reduction. laser surgery - Social History Smoking Status: Current every day smoker Smokeless Tobacco Status: No Alcohol use: none Drug use: marijuana - Family History Father Adopted: No Living Status: Still Living Hx Family Cardiac Disorders: No Hx Family Respiratory Disorders: No Hx Family Cancer: No Hx Family Endocrine Disorder: Yes - Additional Family History Additional family history: Reviewed and non contributory Internal Medicine - H&P: Meds Buprenorphine HCl/Naloxone HCl [Buprenorphin-Naloxon 8-2 mg Sl] 1 tab PO BID 04/12/18 [History] Ferrous Sulfate 325 mg PO BIDWM #60 tablet 04/14/18 [Rx] Vits96/Iron Fum/Folic [ Tablet] 1 each PO DAILY #30 tablet 04/14/18 [Rx] Docusate [Colace] 100 mg PO BID PRN 11/14/18 [History] Allergy/AdvReac Type Severity Reaction Status Date / Time No Known Allergies Allergy Verified 11/14/18 12:36 All Systems PM: A 10-system review of systems was performed and is negative for pertinent findings except as documented above in the HPI. - Constitutional Constitutional: fatigue, lethargy, malaise, weakness, no chills, no fever(s), no night sweats - EENT Eyes: no change in vision, no discharge, no pain, no photophobia Ears: no ear discharge, no ear pain, no tinnitus Nose, mouth and throat: no dysphagia, no nasal discharge, no neck pain, no sore throat - Cardiovascular Cardiovascular ROS IM: no chest pain, no diaphoresis, no dyspnea, no lightheadedness, no palpitations, no syncope - Respiratory Respiratory: no cough, no dyspnea, no wheezing, no excessive phlegm production - Gastrointestinal Gastrointestinal: no abdominal pain, no diarrhea, no hematemesis, no hematochezia, no melena, no nausea, no vomiting - Musculoskeletal Musculoskeletal ROS IM: no numbness, no tingling - Integumentary Integumentary IM: no rash, no unusual bruising - Neurological Neurological ROS: no confusion, no convulsions, no focal weakness, no numbness, no tingling, no tremor(s) - Hematologic/Lymphatic Hematologic/Lymphatic: no easy bruising - Constitutional Vitals: Temp Pulse Resp BP Pulse Ox 98.4 F 77 15 112/62 100 11/14/18 19:44 11/14/18 19:44 11/14/18 19:44 11/14/18 19:44 11/14/18 19:29 Exam: NAD - Head Head exam: Present: atraumatic, normocephalic - Eye Eye exam: Present: PERRL, conjuntiva pink, sclera anicteric Pupils: Present: PERRL - Neck Neck exam general surgery: Present: supple, trachea midline. Absent: lymphadenopathy - Respiratory Respiratory exam: Present: CTAB. Absent: accessory muscle use, rales, rhonchi, wheezes - Cardiovascular Cardiovascular exam: Present: RRR, +S1, +S2. Absent: diastolic murmur, gallop, rubs, systolic murmur - GI/Abdominal GI/Abdominal exam: Present: normal bowel sounds, soft, no peritoneal signs. Absent: distended, tenderness - Extremities Exam Extremities exam: Present: warm, radial pulses palpable and symmetrical. Absent: calf tenderness, cyanotic, pedal edema - Neurological Exam Neurological exam: Present: CN II-XII intact, oriented X3, no focal deficits. Absent: pronater drift, facial droop, speech deficit - Skin Skin exam: Present: dry, intact Internal Med - H&P Results - Labs CBC & Chem 7: 11/14/18 18:05 11/14/18 13:01 Labs: Short CBC 11/14/18 11/14/18 Range/Units 13:01 18:05 WBC 2.9 L (4.3-11.1) K/mcL Hgb 3.7 L* 4.0 L* (12.9-16.9) g/dL Hct 14.8 L* 16.1 L (37.5-50.1) % Plt Count 182 (140-400) K/mcL Neutrophils # 2.2 (1.6-8.9) K/mcL BMP 11/14/18 13:01 Sodium 136 Potassium 3.5 Chloride 100 Carbon Dioxide 29 BUN 9 Creatinine 0.59 L Glucose 95 Calcium 9.0 - Assessment and Plan (1) Symptomatic anemia Current Visit: Yes Status: Acute Assessment and plan: Pt has severe symptomatic anemia from acute on chronic blood loss from his tongue. Hemoglobin was 3.7 on arrival. Typed and crossed for 3 units of pRBC Aim to transfuse hemoglobin to 8 (2) Cystic hygroma Current Visit: Yes Status: Acute Assessment and plan: ENT consulted. No airway compromise noted (3) DVT prophylaxis Current Visit: Yes Status: Acute Assessment and plan: SCDs - Time Spent With Patient Total time spent is greater than 50% in coordination of care (as documented) at patient's floor/unit and/or counseling patient:
[2018-11-14] MEDS ORDERED: *HR* Buprenorphine HCl 8 MG TAB.SUBL SL ONE (22:47)
[2018-11-15] MEDS ORDERED: 0.9 % Sodium Chloride 250 ML ONE ×4 (00:08→17:47)
[2018-11-15 04:44] LABS: Hematocrit 21.2 % (37.5-50.1)
[2018-11-15 04:47] LABS: Hemoglobin 5.6 g/dL (12.9-16.9)
[2018-11-15 05:20] LABS: BUN/Creatinine Ratio 18 (6-26); Blood Urea Nitrogen 10 mg/dL (6-20); Calcium 8.7 mg/dL (8.6-10.3); Carbon Dioxide 29 mEq/L (23-29); Chloride 102 mEq/L (98-107); Glucose 124 mg/dL (70-105); Magnesium 2.1 mg/dL (1.6-2.6); Osmolality,Calculated 282 (280-300); Phosphorous 4.5 mg/dL (2.7-4.5); Potassium 4.2 mEq/L (3.5-5.1); Sodium 136 mEq/L (136-145); eGFR For Non-African Americans > 60 (> 60)
--- NOTE | 2018-11-15 07:47 | Internal Med Progress Note ---
Hospitalist Progress Note - Encounter Date of Encounter: 11/15/18 Time of Encounter: 07:45 - Subjective Interval History: Admitted for severe symptomatic anemia 2/2 to cystic hygroma - Exam Vitals: Temp Pulse Resp BP Pulse Ox 97.6 F 66 18 111/67 100 11/15/18 07:32 11/15/18 07:32 11/15/18 07:32 11/15/18 07:32 11/15/18 03:34 Exam: General appearance: Present: A&O X 3, no acute distress Head exam: Present: normocephalic. Large swollen tongue Respiratory exam: Present: CTAB. Absent: accessory muscle use, rales, rhonchi, wheezes Cardiovascular exam: Present: RRR, +S1, +S2. Absent: diastolic murmur, gallop, rubs, systolic murmur GI/Abdominal exam: Soft, NT, ND, +BS Extremities exam: Absent: pedal edema Neurological exam: Present: alert, oriented X3, no focal deficits. Absent: altered - Assessment and Plan (1) Symptomatic anemia Current Visit: Yes Status: Acute Assessment and Plan: Pt has severe symptomatic anemia from acute on chronic blood loss from his tongue. Hemoglobin was 3.7 on arrival. Typed and crossed for 5 units of pRBC Aim to transfuse hemoglobin above 8 (2) Cystic hygroma Current Visit: Yes Status: Acute Assessment and Plan: ENT consulted. No airway compromise noted Will start on daily IV steroids due to tongue swelling. ENT input appreciated (3) DVT prophylaxis Current Visit: Yes Status: Acute Assessment and Plan: SCDs - Time Spent with Patient Total time spent is greater than 50% in coordination of care (as documented) at patient's floor/unit and/or counseling patient: Internal Medicine: Result - Labs CBC & Chem 7: 11/15/18 10:26 11/15/18 04:12 Labs: Short CBC 11/14/18 11/14/18 11/15/18 Range/Units 13:01 18:05 04:12 WBC 2.9 L (4.3-11.1) K/mcL Hgb 3.7 L* 4.0 L* 5.6 L* D (12.9-16.9) g/dL Hct 14.8 L* 16.1 L 21.2 L (37.5-50.1) % Plt Count 182 (140-400) K/mcL Neutrophils # 2.2 (1.6-8.9) K/mcL BMP 11/14/18 11/15/18 13:01 04:12 Sodium 136 136 Potassium 3.5 4.2 Chloride 100 102 Carbon Dioxide 29 29 BUN 9 10 Creatinine 0.59 L 0.57 L Glucose 95 124 H Calcium 9.0 8.7 - ABG Interpretation ABG results: PT/INR, D-dimer PT 14.4 Seconds (9.4-12.1) H 11/14/18 13:01 Consult Discharge Plan - Plan Referrals: Kristyn Weaver, CELL MANAGER [Primary Care Provider] -
[2018-11-15] MEDS: Prenatal Vit/FA 1 EACH TABLET PO SCH (08:56)
[2018-11-15 10:41] LABS: Hematocrit 22.3 % (37.5-50.1)
--- NOTE | 2018-11-15 14:47 | ENT - Consult Note ---
<Jerri Posada A - Last Filed: 11/15/18 14:48> Date of Encounter: 11/15/18 Time of Encounter: 12:00 Assessment and Plan (1) Cystic hygroma Current Visit: Yes Status: Acute Patient with known history of cystic hygroma, previously treated at [facility]. Patient currently with active flare. Patient seen and examined at bedside today by this provider and Dr. Dupree ENT surgeon. Nasolaryngoscopy performed today which demonstrated slightly increased fullness of left tongue base, otherwise widely patent airway. See findings of nasolaryngoscopy exam. Patient with No respiratory distress, stridor, or increased work of breathing. Patient reports no symptoms of dysphagia or odynophagia. Patient with control of oral secretions. No active oral bleeding or bleeding of the tongue noted at this time. Recommend continuation of IV steroids at this time. monitor closely for respiratory distress. Recommend Biotene mouth spray to aid in increasing oral moisture and decreasing episodes of oral bleeding. Also, recommend chlorhexidine mouth rinse to be used twice a day for oral mouth care. Discussed with patient follow up with [facility] upon discharge. No further ENT intervention is warranted at this time. May contact ENT department as needed. All questions answered. (2) Acute blood loss anemia Current Visit: No Status: Acute Management per primary care team. History of Present Illness Consult date: 11/15/18 Reason for ENT Consult: other (cystic hygroma) Requesting physician: Louise Gonsalez History of present illness: Mr. Simmons is a pleasant 27-year-old male admitted with past medical history of cystic hygroma, chronic bleeding from the tongue, and chronic anemia. Patient reports historically he was followed with [facility] for this issue. Patient was last admitted for these issues in march 2018 with severe anemia and received blood transfusion at that time. Was seen at last visit by ENT and follow up at [facility] for possible surgery was recommended however, patient reports he hasn't followed up. Patient presented to the ED due to shortness of breath, generalized weakness, fatigue, and dizziness, present and progressing over the course of 2 weeks, with his bleeding worsening over the last few days. Patient was noted to have acute anemia upon arrival to the ED and subsequently admitted. ENT was consulted for cystic hygroma and to rule out any associated airway complications. Past Med Surg Social Fam HX - Past Medical History Medical history: hypertension, other Additional medical history: cystic hygroma in the neck Psychiatric history: anxiety, depression - Past Surgical History Surgical History: other Additional surgical history: cyst removal. tongue reduction. laser surgery - Social History Smoking Status: Current every day smoker Smokeless Tobacco Status: No Alcohol use: none Drug use: marijuana - Family History Father Adopted: No Living Status: Still Living Hx Family Cardiac Disorders: No Hx Family Respiratory Disorders: No Hx Family Cancer: No Hx Family Endocrine Disorder: Yes Medications and Allergies Buprenorphine HCl/Naloxone HCl [Buprenorphin-Naloxon 8-2 mg Sl] 1 tab PO BID 04/12/18 [History] Ferrous Sulfate 325 mg PO BIDWM #60 tablet 04/14/18 [Rx] Vits96/Iron Fum/Folic [ Tablet] 1 each PO DAILY #30 tablet 04/14/18 [Rx] Docusate [Colace] 100 mg PO BID PRN 11/14/18 [History] Allergy/AdvReac Type Severity Reaction Status Date / Time No Known Allergies Allergy Verified 11/14/18 12:36 ENT - ROS - EENT Nose, mouth and throat: other (cystic hygroma with blood loss) ENT Exam Initial Vital Signs Temp Pulse Resp BP Pulse Ox 98 F 82 18 133/75 100 11/14/18 12:36 11/14/18 12:36 11/14/18 12:36 11/14/18 12:36 11/14/18 12:36 - General physical appearance well developed, well nourished, no distress - Eyes PERRL, normal ocular movement - ENT normal pinna, normal nares, CN 2-12 grossly intact (Ears: Bilateral external ear canals clear, TM intact and normal bilaterally. Nose: Nares patent bilaterally, mucosa without lesion, septum deviated to the right posteriorly. Inferior turbinate normal bilaterally. Oral: Tongue grossly edematous, firm, ulcerated lesions noted to bilateral sides of the tongue, without active bleeding at this time. Pharynx: Uvula remains visible on oral exam.) - Neck trachea midline - Respiratory normal expansion, normal respiratory effort - Neurologic CN 2-12 grossly intact, normal coordination, normal sensation - Psychiatric oriented to time, oriented to person, oriented to place, other (speech is slightly muffled, however understandable) Exam Initial Vital Signs Temp Pulse Resp BP Pulse Ox 98 F 82 18 133/75 100 11/14/18 12:36 11/14/18 12:36 11/14/18 12:36 11/14/18 12:36 11/14/18 12:36 Results - Labs 11/15/18 10:26 11/15/18 04:12 Abnormal lab results WBC 2.9 K/mcL (4.3-11.1) L 11/14/18 13:01 RBC 2.12 M/mcL (4.19-5.50) L 11/14/18 13:01 Hgb 6.0 g/dL (12.9-16.9) L* 11/15/18 10:26 Hct 22.3 % (37.5-50.1) L 11/15/18 10:26 MCV 69.8 fL (83.0-100.0) L 11/14/18 13:01 MCH 17.5 pg (28.0-33.3) L 11/14/18 13:01 MCHC 25.0 g/dL (31.6-35.5) L 11/14/18 13:01 RDW 20.0 % (11.5-14.5) H 11/14/18 13:01 MPV 9.2 fL (9.4-12.4) L 11/14/18 13:01 0.4 K/mcL (0.6-4.6) L 11/14/18 13:01 Present (Not Present) A 11/14/18 13:01 1+ (Not Present) A 11/14/18 13:01 Present (Not Present) A 11/14/18 13:01 PT 14.4 Seconds (9.4-12.1) H 11/14/18 13:01 APTT 36.1 Seconds (26.0-36.0) H 11/14/18 13:01 0.57 mg/dL (0.70-1.30) L 11/15/18 04:12 Glucose 124 mg/dL (70-105) H 11/15/18 04:12 MTS Gel Crossmatch See Detail 11/14/18 13:01 Diabetes panel 11/15/18 Range/Units 04:12 Sodium 136 (136-145) mEq/L Potassium 4.2 (3.5-5.1) mEq/L Chloride 102 (98-107) mEq/L Carbon Dioxide 29 (23-29) mEq/L BUN 10 (6-20) mg/dL Creatinine 0.57 L (0.70-1.30) mg/dL Glucose 124 H (70-105) mg/dL Calcium 8.7 (8.6-10.3) mg/dL Calcium panel 11/15/18 Range/Units 04:12 Calcium 8.7 (8.6-10.3) mg/dL Phosphorus 4.5 (2.7-4.5) mg/dL Pituitary panel 11/15/18 Range/Units 04:12 Sodium 136 (136-145) mEq/L Potassium 4.2 (3.5-5.1) mEq/L Chloride 102 (98-107) mEq/L Carbon Dioxide 29 (23-29) mEq/L BUN 10 (6-20) mg/dL Creatinine 0.57 L (0.70-1.30) mg/dL Glucose 124 H (70-105) mg/dL Calcium 8.7 (8.6-10.3) mg/dL Adrenal panel 11/15/18 Range/Units 04:12 Sodium 136 (136-145) mEq/L Potassium 4.2 (3.5-5.1) mEq/L Chloride 102 (98-107) mEq/L Carbon Dioxide 29 (23-29) mEq/L BUN 10 (6-20) mg/dL Creatinine 0.57 L (0.70-1.30) mg/dL Glucose 124 H (70-105) mg/dL Calcium 8.7 (8.6-10.3) mg/dL All other labs normal. Consult Discharge Plan - Plan Referrals: Kristyn Weaver CNP [Primary Care Provider] - <Jordan Dupree R - Last Filed: 11/16/18 07:31> Date of Encounter: 11/16/18 Assessment and Plan (1) Cystic hygroma Current Visit: Yes Status: Acute (2) Acute blood loss anemia Current Visit: No Status: Acute ENT Exam Initial Vital Signs Temp Pulse Resp BP Pulse Ox 98 F 82 18 133/75 100 11/14/18 12:36 11/14/18 12:36 11/14/18 12:36 11/14/18 12:36 11/14/18 12:36 Exam Initial Vital Signs Temp Pulse Resp BP Pulse Ox 98 F 82 18 133/75 100 11/14/18 12:36 11/14/18 12:36 11/14/18 12:36 11/14/18 12:36 11/14/18 12:36 Results - Labs 11/16/18 05:26 11/16/18 05:26 Abnormal lab results WBC 4.0 K/mcL (4.3-11.1) L 11/16/18 05:26 RBC 3.70 M/mcL (4.19-5.50) L 11/16/18 05:26 Hgb 7.7 g/dL (12.9-16.9) L D 11/16/18 05:26 Hct 28.1 % (37.5-50.1) L 11/16/18 05:26 MCV 75.9 fL (83.0-100.0) L D 11/16/18 05:26 MCH 20.8 pg (28.0-33.3) L 11/16/18 05:26 MCHC 27.4 g/dL (31.6-35.5) L 11/16/18 05:26 RDW 21.8 % (11.5-14.5) H 11/16/18 05:26 MPV 9.2 fL (9.4-12.4) L 11/14/18 13:01 0.4 K/mcL (0.6-4.6) L 11/14/18 13:01 Nucleated RBCs/100 WBC 0.5 /100 WBC (0) H 11/16/18 05:26 Present (Not Present) A 11/14/18 13:01 1+ (Not Present) A 11/14/18 13:01 Present (Not Present) A 11/14/18 13:01 PT 14.4 Seconds (9.4-12.1) H 11/14/18 13:01 APTT 36.1 Seconds (26.0-36.0) H 11/14/18 13:01 0.54 mg/dL (0.70-1.30) L 11/16/18 05:26 Glucose 136 mg/dL (70-105) H 11/16/18 05:26 Phosphorus 5.1 mg/dL (2.7-4.5) H 11/16/18 05:26 MTS Gel Crossmatch See Detail 11/14/18 13:01 Diabetes panel 11/16/18 Range/Units 05:26 Sodium 136 (136-145) mEq/L Potassium 4.3 (3.5-5.1) mEq/L Chloride 101 (98-107) mEq/L Carbon Dioxide 27 (23-29) mEq/L BUN 10 (6-20) mg/dL Creatinine 0.54 L (0.70-1.30) mg/dL Glucose 136 H (70-105) mg/dL Calcium 9.4 (8.6-10.3) mg/dL Calcium panel 11/16/18 Range/Units 05:26 Calcium 9.4 (8.6-10.3) mg/dL Phosphorus 5.1 H (2.7-4.5) mg/dL Pituitary panel 11/16/18 Range/Units 05:26 Sodium 136 (136-145) mEq/L Potassium 4.3 (3.5-5.1) mEq/L Chloride 101 (98-107) mEq/L Carbon Dioxide 27 (23-29) mEq/L BUN 10 (6-20) mg/dL Creatinine 0.54 L (0.70-1.30) mg/dL Glucose 136 H (70-105) mg/dL Calcium 9.4 (8.6-10.3) mg/dL Adrenal panel 11/16/18 Range/Units 05:26 Sodium 136 (136-145) mEq/L Potassium 4.3 (3.5-5.1) mEq/L Chloride 101 (98-107) mEq/L Carbon Dioxide 27 (23-29) mEq/L BUN 10 (6-20) mg/dL Creatinine 0.54 L (0.70-1.30) mg/dL Glucose 136 H (70-105) mg/dL Calcium 9.4 (8.6-10.3) mg/dL All other labs normal. - Attending Attestation I have seen and examined the patient independent of the GHOST WRITER. 27 y/o M with history of cystic hygroma, bleeding from tongue, and anemia. ENT consulted for evaluation of airway. On NPL, the airway is grossly patent. See separate procedure note. Will monitor for any airway status changes. Patient to follow up with [facility] as outpatient.
[2018-11-15] MEDS: MethylPREDNISolone 40 MG/ML VIAL IVP SCH (17:01)
[2018-11-15] MEDS ORDERED: traMADol 50 MG TABLET PO PRN (18:00)
[2018-11-16 06:10] LABS: Immature Granulocytes % 0.5 % (0-4); Nucleated Red Blood Cells 0.5 /100 WBC (0)
[2018-11-16 06:12] LABS: Hematocrit 28.1 % (37.5-50.1); Hemoglobin 7.7 g/dL (12.9-16.9); Lymphocytes # 0.4 K/mcL (0.6-4.6); Lymphocytes % 9.2 %; Mean Corpuscular HGB Conc 27.4 g/dL (31.6-35.5); Mean Corpuscular Hemoglobin 20.8 pg (28.0-33.3); Mean Corpuscular Volume 75.9 fL (83.0-100.0); Mean Platelet Volume 9.4 fL (9.4-12.4); Monocytes # 0.4 K/mcL (0.0-1.3); Neutrophils # 3.3 K/mcL (1.6-8.9); Platelet Count 183 K/mcL (140-400); Red Cell Distribution Width 21.8 % (11.5-14.5); Segmented Neutrophils % 81.3 %
[2018-11-16 06:28] LABS: BUN/Creatinine Ratio 19 (6-26); Blood Urea Nitrogen 10 mg/dL (6-20); Calcium 9.4 mg/dL (8.6-10.3); Carbon Dioxide 27 mEq/L (23-29); Chloride 101 mEq/L (98-107); Glucose 136 mg/dL (70-105); Osmolality,Calculated 283 (280-300); Phosphorous 5.1 mg/dL (2.7-4.5); Potassium 4.3 mEq/L (3.5-5.1); Sodium 136 mEq/L (136-145); eGFR For Non-African Americans > 60 (> 60)
[2018-11-16 08:05] LABS: Hypochromasia Present (Not Present); Platelet Estimate Normal (Normal)
[2018-11-16 08:06] LABS: Anisocytosis 1+ (Not Present)
[2018-11-16] MEDS: MethylPREDNISolone 40 MG/ML VIAL IVP SCH (08:29)
[2018-11-16] MEDS: Prenatal Vit/FA 1 EACH TABLET PO SCH (08:29)
--- NOTE | 2018-11-16 09:52 | Discharge Summary ---
Date of Encounter: 11/16/18 Time of Encounter: 09:50 - Discharge Diagnosis (1) Symptomatic anemia Priority: Primary Status: Acute Assessment and Plan: 27 year old male with a pmh of cystic hygroma with recurrent bleeds, last here in March 2018 where he was severely anemic and transfused PRBC and was seen by ENT. He was supposed to have followed up with ENT at [facility] for possible surgery but says he hasn't followed up. He comes in with fatigue, dizziness which he says has been going for a couple of weeks and is gradually getting worse. He denies any episodes of passing out. He says this is similar to how he feels when he is anemic and that's why he came to the ER. In the ER, he was noted to have a hemoglobin of 3.7 and he is being transfused 3 units PRBC and he is being admitted for further management He was assessed with severe symptomatic anemia with dizziness from acute on chronic blood loss from his tongue. Hemoglobin was 3.7 on arrival. He was transfused a total of 4 units and his hemoglobin is up to 7.7. He was seen by ENT and received a course of steroids for tongue swelling which improved his tongue swelling. He was discharged in a stable condition. Will complete a 3 day steroid taper. 35 minutes ws spent dischaging this ptient (2) Cystic hygroma Priority: Primary Status: Acute Assessment and Plan: ENT consulted. No airway compromise noted Will start on daily IV steroids due to tongue swelling. ENT input appreciated (3) DVT prophylaxis Priority: Primary Status: Acute Hospital course: Mr. Simmons is a 27 year old male - Time Spent with Patient Total time spent providing and/or coordinating discharge services: - Discharge Medications Prescriptions: Continued Buprenorphine HCl/Naloxone HCl [Buprenorphin-Naloxon 8-2 mg Sl] 1 tab PO BID Ferrous Sulfate 325 mg PO BIDWM #60 tablet Vits96/Iron Fum/Folic [ Tablet] 1 each PO DAILY #30 tablet Docusate [Colace] 100 mg PO BID PRN PRN Reason: Constipation Home Medications: Buprenorphine HCl/Naloxone HCl [Buprenorphin-Naloxon 8-2 mg Sl] 1 tab PO BID 04/12/18 [History] Ferrous Sulfate 325 mg PO BIDWM #60 tablet 04/14/18 [Rx] Vits96/Iron Fum/Folic [ Tablet] 1 each PO DAILY #30 tablet 10/20/18 [Rx] Docusate [Colace] 100 mg PO BID PRN 11/14/18 [History] Allergies/Adverse Reactions: Allergy/AdvReac Type Severity Reaction Status Date / Time No Known Allergies Allergy Verified 11/14/18 12:36 Date of admission: 11/14/18 18:16 Primary care physician: Kristyn Weaver Consults: 11/14/18 20:00 Consult to ENT [CONS] Routine Consulting Provider: [facility] [place] Reason for Consult: cystic hygroma Call Completed: Yes - Constitutional Vitals: Temp Pulse Resp BP Pulse Ox 97.2 F L 61 16 115/74 99 11/16/18 07:13 11/16/18 07:13 11/16/18 07:13 11/16/18 07:13 11/16/18 07:13 Exam: General appearance: Present: A&O X 3, no acute distress Head exam: Present: normocephalic. Large swollen tongue Respiratory exam: Present: CTAB. Absent: accessory muscle use, rales, rhonchi, wheezes Cardiovascular exam: Present: RRR, +S1, +S2. Absent: diastolic murmur, gallop, rubs, systolic murmur GI/Abdominal exam: Soft, NT, ND, +BS Extremities exam: Absent: pedal edema Neurological exam: Present: alert, oriented X3, no focal deficits. Absent: altered - Patient Status Disposition: Home, Self-Care Condition: Fair - Discharge Instructions Instructions: Anemia (GEN) Follow Up With: Kristyn Weaver CNP [Primary Care Provider] - (called and left message with office to schedule hospital follow up)
[2018-11-16] MEDS ORDERED: *HR* Buprenorphine HCl 8 MG TAB.SUBL SL ONE (10:35)
[2018-11-16 11:32] VITALS: BP 124/62
== END 2018-11-16 15:58 | disposition home or self-care (01) | DRG 663 ==
LOC: EMEROOARM 12:29 → ICNU 12:29 → 2NNU 18:16
PROVIDERS: ADMIT Internal Medicine Nephrology; ATTEND Internal Medicine Nephrology

== ENCOUNTER 2019-01-23 11:45 | Observation (INO) ==
--- NOTE | 2019-01-23 12:26 | Emergency Department Note ---
Disposition Clinical Impression: Cystic hygroma, Bleeding Anemia Qualifiers: Anemia type: unspecified type Qualified Code(s): D64.9 - Anemia, unspecified Disposition: Admitted As Inpatient Time of Disposition: 17:45 General Adult HPI - General Chief complaint: ED Recheck/Abnormal Lab/Rx Stated complaint: Low hemoglobin Time Seen by Provider: 01/23/19 11:51 Source: patient, family Limitations: no limitations - History of Present Illness HPI Narrative: Patient with PMHx of cystic hygroma is presenting for evaluation of fatigue that has been going on for days. States feel similar to when he has been anemic requiring transfusions in the past. States he bleeds from his hygroma has been referred for removal in the past but has chosen not too. Pain Scale: 5 - Related Data Home Medications Medication Instructions Recorded Confirmed Buprenorphine HCl/Naloxone HCl 1 tab PO BID 04/12/18 01/23/19 [Buprenorphin-Naloxon 8-2 mg Sl] Ferrous Sulfate 325 mg PO DAILY 01/23/19 01/23/19 Allergies Allergy/AdvReac Type Severity Reaction Status Date / Time No Known Allergies Allergy Verified 01/23/19 11:50 All systems ED: reviewed and negative except as stated. Review of Systems: As Per HPI Constitutional: Reports: weakness ENT ED: Reports: other (intermittent bleeding form tongue.) Cardiovascular: Denies: chest pain, palpitations, dyspnea on exertion Gastrointestinal: Denies: constipation, hematemesis, melena, hematochezia Past Medical History - Past Medical History Attestation: Yes The following information was validated with the patient. Medical history: Reports: hypertension, other Surgical history: Reports: other Psychiatric history: Reports: anxiety, depression - Social History Smoking Status: Current every day smoker Smokeless Tobacco Status: No Alcohol use: Reports: none Drug use: Reports: marijuana Physical Exam CONSTITUTIONAL: Well-appearing; well-nourished; A&O X 3, in no apparent distress HEAD: Normocephalic; atraumatic EYES: PERRL, no scleral icterus NOSE: The nose is normal in appearance without rhinorrhea THROAT: Very large tongue prohibiting evaluation of the posterior pharynx with extension into the submandibular region. NECK: No JVD or distended neck veins RESP: Normal chest excursion with respiration; breath sounds clear and equal bilaterally; no wheezes, rhonchi, or rales CARD: Regular rhythm, without murmurs, rub or gallop ABD: Non-distended; non-tender, soft, without rigidity, rebound or guarding,no pulsatile mass CHEST: No pain with palpation SKIN: Normal for age and race; warm and dry without diaphoresis ; no apparent lesions EXTREMITIES: Pulses are 2 plus and equal times 4 extremities, no peripheral edema or calf muscle pain - General Limitations: no limitations General appearance: alert, in no apparent distress Course Course Narrative: The patient's past history of cystic hygroma intermittent bleeding appears that this is blood loss anemia however it is chronic in nature. Patient was ordered a transfusion for his low hemoglobin however he requires blood from [place] due to use sensitivities and is blood when type and screening. He will be admitted to hospitalist for further evaluation and blood transfusions. His had consultation with ENT in the past which they have stopped performing surgeries he does not want any further surgical management. Stable at this time. Vital Signs Temperature 98.4 F 01/23/19 11:50 Pulse Rate 69 01/23/19 11:50 Respiratory Rate 18 01/23/19 11:50 Blood Pressure 118/63 01/23/19 11:50 O2 Sat by Pulse Oximetry 99 01/23/19 11:50 Temperature 97.5 F L 01/23/19 16:46 Pulse Rate 58 01/23/19 16:46 Respiratory Rate 15 01/23/19 16:46 Blood Pressure 97/36 01/23/19 16:46 O2 Sat by Pulse Oximetry 100 01/23/19 16:46 Oxygen Delivery Oxygen Delivery Room Air Medical Decision Making - Medical Records Medical records reviewed: Yes I reviewed the patient's medical records. - Lab Data Lab results reviewed: Yes I reviewed the patient's lab results. Result diagrams: 01/23/19 12:22 01/23/19 12:22 Lab Results 01/23/19 01/23/19 01/23/19 Range/Units 12:22 12:22 12:22 WBC 2.9 L (4.3-11.1) K/mcL RBC 2.86 L (4.19-5.50) M/mcL Hgb 5.3 L* (12.9-16.9) g/dL Hct 20.5 L (37.5-50.1) % MCV 71.7 L (83.0-100.0) fL MCH 18.5 L (28.0-33.3) pg MCHC 25.9 L (31.6-35.5) g/dL RDW 17.8 H (11.5-14.5) % Plt Count 166 (140-400) K/mcL MPV 9.3 L (9.4-12.4) fL Immature Gran % 0.3 (0-4) % Seg Neutrophils % 70.2 % Lymphocytes % 15.3 % Monocytes % 11.8 % Eosinophils % 1.7 % Basophils % 0.7 % Neutrophils # 2.0 (1.6-8.9) K/mcL Lymphocytes # 0.4 L (0.6-4.6) K/mcL Monocytes # 0.3 (0.0-1.3) K/mcL Eosinophils # 0.1 (0.0-0.6) K/mcL Basophils # 0.0 (0.0-0.2) K/mcL Platelet Estimate Normal (Normal) Hypochromasia Present A (Not Present) Anisocytosis 1+ A (Not Present) Microcytosis Present A (Not Present) Sodium 138 (136-145) mEq/L Potassium 3.8 (3.5-5.1) mEq/L Chloride 105 (98-107) mEq/L Carbon Dioxide 28 (23-29) mEq/L BUN 6 (6-20) mg/dL Creatinine 0.54 L (0.70-1.30) mg/dL Est GFR ( Amer) > 60 (> 60) Est GFR (Non-Af Amer) > 60 (> 60) BUN/Creatinine Ratio 11 (6-26) Glucose 73 (70-105) mg/dL Calculated Osmolality 282 (280-300) Calcium 8.6 (8.6-10.3) mg/dL Total Bilirubin 0.8 (0.3-1.0) mg/dL AST 10 L (13-39) Units/L ALT 6 L (7-52) Units/L Alkaline Phosphatase 59 (34-104) Units/L Troponin I < 0.03 (< 0.04) ng/mL Serum Total Protein 6.3 L (6.4-8.9) g/dL Albumin 4.1 (3.5-5.7) g/dL Globulin 2.2 L (2.4-3.5) g/dL Albumin/Globulin Ratio 1.9 (1.1-2.2) Blood Type O POSITIVE Antibody Screen POSITIVE Antibody Identification Known Anti-K MTS Gel Crossmatch See Detail - Radiology Data Radiology results reviewed: Yes I reviewed the patient's radiology results. Chest X-Ray 01/23/19 12:33 IMPRESSION: Unremarkable chest. D/ / Audelia Ford MD / Audelia Ford MD Interpreting Provider: Audelia Ford MD - EKG Data EKG #1 EKG attestation: Yes I reviewed and interpreted this EKG. EKG results narrative: Normal sinus rhythm with a rate of 70 without evidence of STEMI. QTC of 459, QRS 101. Attestation Statement - Attestation Attestation: I, Colt Hart, examined this patient and my medical decision-making was reviewed with the OIL PUMPER/PA/Advanced Practice Nurse/Resident Physician. I agree with the documented findings, disposition and treatment plan as described except to the extent set forth below. 28-year-old male presents emergency Department with concerns of lightheadedness, vision and weakness. Patient has a history of anemia with similar symptoms in the past. Patient has a very large tongue secondary to cystic hygroma. He is followed with ENT at [facility] in the past however he does not want further surgery at this time. Patient was previously evaluated for some her symptoms and had a hemoglobin of 3.7. Today the patient's hemoglobin is 5.3. Patient denies fever, vomiting, chest pain, short of breath, palpitations. Patient will be transfused packed red blood cells and admitted to the hospitalist for further care and evaluation.I reviewed the EKG with the resident and agree with the interpretation.
[2019-01-23 12:44] LABS: Basophils % 0.7 %; Eosinophils # 0.1 K/mcL (0.0-0.6); Eosinophils % 1.7 %; Hematocrit 20.5 % (37.5-50.1); Immature Granulocytes % 0.3 % (0-4); Lymphocytes # 0.4 K/mcL (0.6-4.6); Lymphocytes % 15.3 %; Mean Corpuscular HGB Conc 25.9 g/dL (31.6-35.5); Mean Corpuscular Hemoglobin 18.5 pg (28.0-33.3); Mean Corpuscular Volume 71.7 fL (83.0-100.0); Mean Platelet Volume 9.3 fL (9.4-12.4); Monocytes # 0.3 K/mcL (0.0-1.3); Monocytes % 11.8 %; Platelet Count 166 K/mcL (140-400); Red Blood Count 2.86 M/mcL (4.19-5.50); Red Cell Distribution Width 17.8 % (11.5-14.5); Segmented Neutrophils % 70.2 %; White Blood Count 2.9 K/mcL (4.3-11.1)
[2019-01-23 12:50] LABS: Hemoglobin 5.3 g/dL (12.9-16.9)
[2019-01-23 13:05] LABS: Alanine Aminotransferase 6 Units/L (7-52); Albumin 4.1 g/dL (3.5-5.7); Albumin/Globulin Ratio 1.9 (1.1-2.2); Alkaline Phosphatase 59 Units/L (34-104); Aspartate Amino Transferase 10 Units/L (13-39); BUN/Creatinine Ratio 11 (6-26); Bilirubin,Total 0.8 mg/dL (0.3-1.0); Blood Urea Nitrogen 6 mg/dL (6-20); Calcium 8.6 mg/dL (8.6-10.3); Carbon Dioxide 28 mEq/L (23-29); Chloride 105 mEq/L (98-107); Globulin 2.2 g/dL (2.4-3.5); Glucose 73 mg/dL (70-105); Osmolality,Calculated 282 (280-300); Potassium 3.8 mEq/L (3.5-5.1); Sodium 138 mEq/L (136-145); Total Protein 6.3 g/dL (6.4-8.9); Troponin I < 0.03 ng/mL (< 0.04); eGFR For African Americans > 60 (> 60); eGFR For Non-African Americans > 60 (> 60)
[2019-01-23 13:22] LABS: Anisocytosis 1+ (Not Present); Hypochromasia Present (Not Present); Platelet Estimate Normal (Normal)
[2019-01-23 13:23] LABS: Microcytosis Present (Not Present)
[2019-01-23] MEDS ORDERED: Naloxone 0.4 MG/ML INJ IVP PRN (18:53)
--- NOTE | 2019-01-23 19:44 | Internal Med History&Physical ---
Date of Encounter: 01/23/19 Time of Encounter: 17:45 Internal Medicine - H&P: HPI Chief complaint: Fatigue abnormal lab Admitted From: Emergency Dept Plans for Post Hospital Care: Home History of present illness: Mr. Simmons is a 28 year old male with a past medical history significant for congenital defect with significant macroglossia and hypertension. He has been fatigued for 5 days as such he sought care with his primary care provider who ordered routine lab also noted to have anemia. He told the ED physician that he has cystic hygroma and has bled from his hygroma in the past and also required transfusion for anemia in the past. He denies any melena or hematochezia or hematuria. With his macroglossia and hygroma history is able to eat his food denies any choking episodes or being short of breath. He stated that he wants a regular diet and specifically required requested I do not give him a mechanical soft diet Past Med Surg Social Fam HX - Past Medical History Medical history: hypertension, other Additional medical history: cystic hydromas Psychiatric history: anxiety, depression - Past Surgical History Surgical History: other Additional surgical history: cyst removal. tongue reduction. laser surgery - Social History Smoking Status: Current every day smoker Smokeless Tobacco Status: No Alcohol use: none Drug use: marijuana - Family History Father Adopted: No Living Status: Still Living Hx Family Cardiac Disorders: No Hx Family Respiratory Disorders: No Hx Family Cancer: No Hx Family Endocrine Disorder: Yes Internal Medicine - H&P: Meds Buprenorphine HCl/Naloxone HCl [Buprenorphin-Naloxon 8-2 mg Sl] 1 tab PO BID 04/12/18 [History] Ferrous Sulfate 325 mg PO DAILY 01/23/19 [History] Allergy/AdvReac Type Severity Reaction Status Date / Time No Known Allergies Allergy Verified 01/23/19 11:50 All Systems PM: A 10-system review of systems was performed and is negative for pertinent findings except as documented above in the HPI. Review of systems: GENERAL: Denies fever, chills, or night sweats. He reports worsening fatigue DERMATOLOGIC: Denies itch, rash or lesions HEENT: Denies headache, blurriness, diplopia or decreased visual acuity, ear pain, tinnitus, rhinorrhea, sinus tenderness or sore throat RESPIRATORY: Denies SOB, cough, hemoptysis or pleuritic chest pain CARDIOVASCULAR: Denies chest pain, LE edema, palpitation or syncope GASTRO INTESTINAL: Denies cramps, nausea/vomiting, diarrhea or constipation, melena MUSCULOSKELATAL: Denies muscle pain/weakness, joint tenderness/pain or swelling PSYCH: Denies worsening anxiety, or depression NEURO: Denies vertigo, dizziness, or ataxia GENITURINARY: Denies dysuria, nocturia or urinary incontinence - Constitutional Vitals: Temp Pulse Resp BP Pulse Ox 97.8 F 61 16 92/46 97 01/23/19 19:09 01/23/19 19:09 01/23/19 19:09 01/23/19 19:09 01/23/19 19:09 Exam: GENERAL: NAD, A&O x3, pleasant and conversant although with impaired speech due to macroglossia SKIN: No skin lesions or rashes, non-jaundiced EYES: EOMI, PERRLA, no sclera icterus HENT: Head atraumatic, no facial asymmetry, however significant macroglossia noted, visualized portion of the oral mucosa and enlarged tongue appeared bloodstained frontal and maxillary sinus non-tender, normal hearing, NECK: Significant anterior soft tissue noted however nontender, trachea midline, unable to fully appreciate thyroid gland LUNGS: vesicular breath sounds, clear to auscultation, no wheeze, rhonchi, rales or crackles. Non labored respirations HEART: Normal rate and rhythm, no murmurs or rubs ABDOMEN: soft, non-tender, non-distended, bowel sounds x 4 normoactive EXTRMITIES: No LE asymmetry, No LE edema, pedal pulses 1+ and radial pulses 2 + and equal bilaterally NEURO: Speech and comprehension appears intact. PSYCH: Cooperative, non- anxious or irritable, mood and affect is appropriate Internal Med - H&P Results - Labs CBC & Chem 7: 01/23/19 12:22 01/23/19 12:22 Labs: Short CBC 01/23/19 Range/Units 12:22 WBC 2.9 L (4.3-11.1) K/mcL Hgb 5.3 L* (12.9-16.9) g/dL Hct 20.5 L (37.5-50.1) % Plt Count 166 (140-400) K/mcL Neutrophils # 2.0 (1.6-8.9) K/mcL BMP 01/23/19 12:22 Sodium 138 Potassium 3.8 Chloride 105 Carbon Dioxide 28 BUN 6 Creatinine 0.54 L Glucose 73 Calcium 8.6 Cardiac Enzymes 01/23/19 Range/Units 12:22 Troponin I < 0.03 (< 0.04) ng/mL Liver Function 01/23/19 Range/Units 12:22 Total Bilirubin 0.8 (0.3-1.0) mg/dL AST 10 L (13-39) Units/L ALT 6 L (7-52) Units/L Alkaline Phosphatase 59 (34-104) Units/L Albumin 4.1 (3.5-5.7) g/dL - Impressions ITS Impressions Chest X-Ray 01/23/19 12:33 IMPRESSION: Unremarkable chest. D/ / Audelia Ford MD / Audelia Ford MD Interpreting Provider: Audelia Ford MD - Assessment and Plan (1) Acute blood loss anemia Current Visit: Yes Status: Acute Assessment and plan: Pack RBCs have been ordered at ED, appear this is acute on chronic for him with his hygroma, his macroglossia does appear to have sustained blood. We will initiate workup he denies any melena, hematochezia or hematuria (2) Cystic hygroma Current Visit: Yes Status: Acute Assessment and plan: Appears chronic (3) Hypertension Current Visit: Yes Status: Acute Assessment and plan: Would monitor, BP low on admission Qualifiers: Hypertension type: essential hypertension Qualified Code(s): I10 - Essential (primary) hypertension (4) DVT prophylaxis Current Visit: Yes Status: Acute Assessment and plan: SCDs - Time Spent With Patient Total time spent is greater than 50% in coordination of care (as documented) at patient's floor/unit and/or counseling patient:
[2019-01-23] MEDS ORDERED: 0.9 % Sodium Chloride 250 ML ONE (22:46)
[2019-01-24] MEDS ORDERED: 0.9 % Sodium Chloride 250 ML ONE (01:33)
[2019-01-24 05:11] LABS: Hematocrit 28.8 % (37.5-50.1); Mean Corpuscular HGB Conc 27.8 g/dL (31.6-35.5); Mean Corpuscular Hemoglobin 21.2 pg (28.0-33.3); Mean Corpuscular Volume 76.2 fL (83.0-100.0); Mean Platelet Volume 10.1 fL (9.4-12.4); Platelet Count 198 K/mcL (140-400); Red Blood Count 3.78 M/mcL (4.19-5.50); Red Cell Distribution Width 20.4 % (11.5-14.5); White Blood Count 3.3 K/mcL (4.3-11.1)
[2019-01-24 05:28] LABS: BUN/Creatinine Ratio 13 (6-26); Blood Urea Nitrogen 8 mg/dL (6-20); Carbon Dioxide 28 mEq/L (23-29); Chloride 103 mEq/L (98-107); Glucose 103 mg/dL (70-105); Osmolality,Calculated 283 (280-300); Potassium 4.4 mEq/L (3.5-5.1); Sodium 137 mEq/L (136-145); eGFR For African Americans > 60 (> 60); eGFR For Non-African Americans > 60 (> 60)
[2019-01-24 05:30] LABS: % Iron Saturation 4 % (20-55); Iron 16 mcg/dL (65-175); Transferrin 313 mg/dL (203-362)
[2019-01-24 05:49] LABS: Ferritin < 8 ng/mL (20-250)
[2019-01-24 05:53] LABS: Folate 8.4 ng/mL (3.0-16.0)
[2019-01-24] MEDS ORDERED: Iron Sucrose Complex 200 MG in 0.9 % Sodium Chloride 100 ML IVPB ONE (08:00)
[2019-01-24] MEDS ORDERED: *HR* Buprenorphine HCl 8 MG TAB.SUBL SL SCH (12:00)
[2019-01-24 15:00] VITALS: BP 119/74
--- NOTE | 2019-01-24 15:43 | Discharge Summary ---
- NOTES TO OUTPATIENT PROVIDER Notes to Outpatient Provider: Posthospital discharge follow acute blood loss anemia history of cystic hygroma likely source of bleed. Will need CBC 1 week. Will likely benefit from routine CBC weekly or biweekly with ferritin levels closely followed 3-4 times a year with outpatient transfusion of packed RBC if indicated or IV iron sucrose if indicated Orders not resulted at time of discharge: Pending orders 01/23/19 19:52 Stool guiac [Occult Blood,Stool] [BF] Routine Date of Encounter: 01/24/19 Time of Encounter: 15:40 - Discharge Diagnosis (1) Acute blood loss anemia Priority: Primary Status: Acute Assessment and Plan: Pack RBCs have been ordered at ED, appear this is acute on chronic for him with his hygroma, his macroglossia does appear to have stained blood. We will initiate workup he denies any melena, hematochezia or hematuria, stool guaiac not done because patient had no bowel movement. Does reveal iron deficiency likely indicative of his chronicity of his blood loss from a cystic hygroma. Status post 2 units packed red blood cells hemoglobin improved to 8 patient does report feeling better as such is requesting to be discharged. He was administered 1 dose of iron sucrose intravenously. He is to follow-up with his primary care physician within one week and to repeat CBC in 1 week. Does admit to having transfusions rountinely in the past (2) Cystic hygroma Priority: Primary Status: Acute Assessment and Plan: Appears chronic and likely source of bleeding is congenital since and patient stated that he has had several surgical intervention but to no avail (3) Hypertension Priority: Secondary Status: Acute Assessment and Plan: Would monitor, BP low on admission, normotensive on discharge status post blood transfusion Qualifiers: Hypertension type: essential hypertension Qualified Code(s): I10 - Essential (primary) hypertension (4) DVT prophylaxis Priority: Secondary Status: Acute Assessment and Plan: SCDs is being discharged today (5) Iron deficiency anemia due to chronic blood loss Priority: Secondary Status: Acute Assessment and Plan: as stated above, he will likely benefit from weekly CBC with transfusion as indicated or routine monitoring of ferritin levels with IV sucrose as indicated Hospital course: Mr. Simmons is a 28 year old male with a history of cystic hygroma, who presented with a hemoglobin of 5.3 and symptomatic. Received 2 units of packed red blood cell hemoglobin improved to 8.0. He was also noted to be iron deficient was treated with IV iron sucrose 200 mg. He does endorse a history of prior blood infusion. He stated that he has had since infancy multiple surgeries to address his cystic hygroma which is the likely source of bleed. Patient will need close monitoring of his CBC either weekly or biweekly plus routine ferritin levels checked to 3 times a year given the chronic and insidious bleed which was noted in his oromucosa. During this admission he requested a regular diet despite having profound macroglossia mechanical soft diet and appropriately patient since a regular diet will result in constant oral mucosa trauma and thus oral mucosa bleed Discharge discussed with: patient, nurse - Time Spent with Patient Total time spent providing and/or coordinating discharge services: 35 mins - Discharge Medications Prescriptions: Continued Buprenorphine HCl/Naloxone HCl [Buprenorphin-Naloxon 8-2 mg Sl] 1 tab PO BID Ferrous Sulfate 325 mg PO DAILY Home Medications: Buprenorphine HCl/Naloxone HCl [Buprenorphin-Naloxon 8-2 mg Sl] 1 tab PO BID 04/12/18 [History] Ferrous Sulfate 325 mg PO DAILY 01/23/19 [History] Allergies/Adverse Reactions: Allergy/AdvReac Type Severity Reaction Status Date / Time No Known Allergies Allergy Verified 01/23/19 11:50 Date of admission: 01/23/19 16:17 Primary care physician: Kristyn Weaver Consults: 01/23/19 18:59 Consult to Speech Therapy [CONS] Routine Comment: Evaluate, develop and implement POC Reason for Consult: congenital deffect with significant macroglossia Time Notified: 19:03 Call Completed: No Discharging clinician: Karen Rodriguez - Constitutional Vitals: Temp Pulse Resp BP Pulse Ox 97.4 F L 63 15 119/74 100 01/24/19 14:56 01/24/19 14:56 01/24/19 14:56 01/24/19 14:56 01/24/19 14:56 Exam: GENERAL: NAD, A&O x3, pleasant and conversant although with impaired speech due to macroglossia SKIN: No skin lesions or rashes, non-jaundiced EYES: EOMI, PERRLA, no sclera icterus HENT: Head atraumatic, no facial asymmetry, however significant macroglossia noted, visualized portion of the oral mucosa and enlarged tongue appeared bloodstained normal hearing, NECK: Significant anterior soft tissue noted however nontender, trachea midline, unable to fully appreciate thyroid gland LUNGS: vesicular breath sounds, clear to auscultation, no wheeze, rhonchi, rales or crackles. Non labored respirations HEART: Normal rate and rhythm, no murmurs or rubs ABDOMEN: soft, non-tender, non-distended, bowel sounds x 4 normoactive EXTRMITIES: No LE asymmetry, No LE edema, pedal pulses 1+ and radial pulses 2 + and equal bilaterally NEURO: Speech and comprehension appears intact. PSYCH: Cooperative, non- anxious or irritable, mood and affect is appropriate - Patient Status Disposition: Home, Self-Care Condition: Good Functional capacity at discharge: independent ambulation Overall status at discharge: patient is back to baseline - Discharge Instructions Instructions: Anemia (GEN) Follow Up With: Kristyn Weaver CNP [Primary Care Provider] - - Diet and Activity Activity: resume usual activities as tolerated Diet: advance to your usual diet
--- NOTE | 2019-01-28 12:33 | Electrocardiograph Report ---
[address] [address] Test Date: 2019-01-23 Pat Name: Grover Simmons Department: EXAM6 Room: 3A15 Gender: M [employer]: : 1990 Requested By: Subhash Dill Order Number: [id number] Reading MD: Timbo Ayala Measurements Intervals [place] Rate: 70 P: 50 [place]: 163 QRS: 9 QRSD: 101 T: 33 QT: 425 QTc: 459 Interpretive Statements Sinus rhythm BASELINE ARTIFACT Electronically Signed On 01-28-2019 12:31:55 EDT by Timbo Ayala
== END 2019-01-24 18:05 | disposition home or self-care (01) ==
LOC: 3ANU 11:45 → EMEROOARM 11:45 → SUATTDRO 16:17 → 3ANU 16:38
PROVIDERS: ADMIT Pharmacist; ATTEND Pharmacist

== ENCOUNTER 2019-03-14 13:01 | Observation (INO) ==
[2019-03-14 14:08] LABS: Hematocrit 21.2 % (37.5-50.1); Mean Corpuscular HGB Conc 26.9 g/dL (31.6-35.5)
[2019-03-14 14:10] LABS: Basophils % 0.6 %; Eosinophils # 0.2 K/mcL (0.0-0.6); Eosinophils % 4.6 %; Lymphocytes # 0.5 K/mcL (0.6-4.6); Lymphocytes % 16.2 %; Mean Corpuscular Hemoglobin 19.5 pg (28.0-33.3); Mean Corpuscular Volume 72.4 fL (83.0-100.0); Mean Platelet Volume 9.4 fL (9.4-12.4); Monocytes # 0.4 K/mcL (0.0-1.3); Monocytes % 11.6 %; Neutrophils # 2.2 K/mcL (1.6-8.9); Platelet Count 155 K/mcL (140-400); Red Blood Count 2.93 M/mcL (4.19-5.50); Red Cell Distribution Width 18.9 % (11.5-14.5); White Blood Count 3.3 K/mcL (4.3-11.1)
[2019-03-14 14:20] LABS: Hemoglobin 5.7 g/dL (12.9-16.9)
[2019-03-14 14:53] LABS: Hypochromasia Present (Not Present); Microcytosis Present (Not Present)
[2019-03-14 14:54] LABS: Platelet Estimate Normal (Normal)
--- NOTE | 2019-03-14 15:04 | Emergency Department Note ---
Disposition Clinical Impression: Acute blood loss anemia Disposition: Admitted As Inpatient Condition: Good Referrals: Kristyn Weaver CNP [Primary Care Provider] - Time of Disposition: 15:39 General Adult HPI - General Chief complaint: ED Recheck/Abnormal Lab/Rx Stated complaint: "low iron" Time Seen by Provider: 03/14/19 14:22 Source: patient Limitations: no limitations Nursing Notes Reviewed: Yes Vital Signs Reviewed: Yes - History of Present Illness HPI Narrative: Male patient with a history of a cystic hygroma presenting to the emergency department complaining of feeling weak and occasionally having trouble putting together his thoughts. He states that he gets like this when his red blood cell count is low. He has been admitted to this hospital before for anemia. In December was his last visit. He received 3 units of blood at that time. States that he has been seen by ENT previously and has had debulking of this area however he is requesting not to have surgery at this time. He states that he is putting this off as long as possible because he was concerned that he may not be able to eat like normal. He denies any pain. Denies any fevers. Denies any trouble sw allowing or is of breath or chest pain. Pain Scale: 0 - Related Data Home Medications Medication Instructions Recorded Confirmed Buprenorphine HCl/Naloxone HCl 1 tab PO BID 04/12/18 01/23/19 [Buprenorphin-Naloxon 8-2 mg Sl] Ferrous Sulfate 325 mg PO DAILY 01/23/19 01/23/19 Allergies Allergy/AdvReac Type Severity Reaction Status Date / Time No Known Allergies Allergy Verified 03/14/19 13:06 All systems ED: reviewed and negative except as stated. Review of Systems: As Per HPI Constitutional: Denies: fever, chills ENT ED: Denies: congestion Cardiovascular: Denies: chest pain, syncope Respiratory: Denies: cough, dyspnea Gastrointestinal: Denies: abdominal pain, nausea, vomiting, diarrhea Musculoskeletal: Denies: back pain, neck pain Endocrine: Reports: fatigue Past Medical History - Past Medical History Attestation: Yes The following information was validated with the patient. Source: patient Medical history: Reports: hypertension, other Surgical history: Reports: other Psychiatric history: Reports: anxiety, depression - Social History Smoking Status: Current every day smoker Smokeless Tobacco Status: No Alcohol use: Reports: none Drug use: Reports: marijuana Physical Exam - General Limitations: no limitations General appearance: alert, in no apparent distress - Head Head exam: atraumatic, normocephalic, normal inspection - Eye Eye exam: Present: normal appearance, PERRL, EOMI - ENT ENT exam: mucous membranes moist, other (Large hygroma. Beefy-red tongue. Swe lling noted. Does extend into his posterior oropharynx. It extends into the submandibular space. Not painful to palpation. Not actively bleeding. No airway compromise.) - Neck Neck exam: Present: normal inspection, full ROM, trachea midline - Chest Chest inspection: Present: normal inspection, symmetric chest wall rise - Respiratory Respiratory exam: Present: normal lung sounds bilaterally. Absent: respiratory distress, accessory muscle use - Cardiovascular Cardiovascular exam: Present: regular rate, normal rhythm, normal heart sounds - Abdominal Exam Abdominal exam: Present: soft, Non-Tender. Absent: tenderness, distention, guarding, rebound, rigidity, organomegaly, Alfonso's sign, Rovsing's sign, tenderness at McBurney's Point - Extremities Exam Extremities exam: Present: normal inspection, full ROM, normal capillary refill. Absent: tenderness, pedal edema, calf tenderness - Back Exam Back exam: Present: normal inspection, full ROM. Absent: tenderness - Neurological Exam Neurological exam: Present: alert, oriented X3 - Psychiatric Psychiatric exam: Present: normal affect, normal mood - Skin Skin exam: Present: warm, dry, intact, normal color. Absent: rash, cyanosis, diaphoresis Course Course Narrative: Patient with a known hygroma. States that he does not 1 have surgery at this time and is stooling this as long as possible. Known anemia. Generally comes in to get blood. Does have multiple antibodies so blood generally has to come from [place]. He is normotensive here. Does not appear to be in distress. Hygroma is large not actively bleeding. No pain to palpation. No occlusion of his airway. We will get a basic lab workup on patient and admit patient to the hospital. We did order 2 units of blood for the patient. Last blood transfusion appears to be in December. CBC did show hemoglobin of 5.7. Does appear this is where he was previously whenever he came in. He has no complaints. Lung sounds are clear heart tones are normal abdomen is soft nontender nondistended. - Consultations Consultation #1: Dr Santos accepted Pt in stable condition. Time: 15:40 Vital Signs Temperature 97.9 F 03/14/19 13:06 Pulse Rate 77 03/14/19 13:06 Respiratory Rate 20 03/14/19 13:06 Blood Pressure 121/72 03/14/19 13:06 O2 Sat by Pulse Oximetry 97 03/14/19 13:06 Temperature 97.9 F 03/14/19 13:06 Pulse Rate 77 03/14/19 13:06 Respiratory Rate 20 03/14/19 13:06 Blood Pressure 121/72 03/14/19 13:06 O2 Sat by Pulse Oximetry 97 03/14/19 13:06 Oxygen Delivery Oxygen Delivery Room Air Medical Decision Making - Medical Records Medical records reviewed: Yes I reviewed the patient's medical records. - Lab Data Lab results reviewed: Yes I reviewed the patient's lab results. Result diagrams: 03/14/19 13:45 Lab Results 03/14/19 Range/Units 13:45 WBC 3.3 L (4.3-11.1) K/mcL RBC 2.93 L (4.19-5.50) M/mcL Hgb 5.7 L* (12.9-16.9) g/dL Hct 21.2 L (37.5-50.1) % MCV 72.4 L (83.0-100.0) fL MCH 19.5 L (28.0-33.3) pg MCHC 26.9 L (31.6-35.5) g/dL RDW 18.9 H (11.5-14.5) % Plt Count 155 (140-400) K/mcL MPV 9.4 (9.4-12.4) fL
--- NOTE | 2019-03-14 15:42 | Emergency Department Note ---
Disposition Clinical Impression: Acute blood loss anemia Disposition: Admitted As Inpatient Condition: Good Time of Disposition: 15:41 General Adult HPI - General Chief complaint: ED Recheck/Abnormal Lab/Rx Stated complaint: "low iron" Time Seen by Provider: 03/14/19 14:22 Source: patient Limitations: no limitations Nursing Notes Reviewed: Yes Vital Signs Reviewed: Yes - History of Present Illness Pain Scale: 0 - Related Data Home Medications Medication Instructions Recorded Confirmed Buprenorphine HCl/Naloxone HCl 1 tab PO BID 04/12/18 01/23/19 [Buprenorphin-Naloxon 8-2 mg Sl] Ferrous Sulfate 325 mg PO DAILY 01/23/19 01/23/19 Allergies Allergy/AdvReac Type Severity Reaction Status Date / Time No Known Allergies Allergy Verified 03/14/19 13:06 Constitutional: Denies: fever, chills ENT ED: Denies: congestion Cardiovascular: Denies: chest pain, syncope Respiratory: Denies: cough, dyspnea Gastrointestinal: Denies: abdominal pain, nausea, vomiting, diarrhea Musculoskeletal: Denies: back pain, neck pain Endocrine: Reports: fatigue Past Medical History - Past Medical History Medical history: Reports: hypertension, other Surgical history: Reports: other Psychiatric history: Reports: anxiety, depression - Social History Smoking Status: Current every day smoker Smokeless Tobacco Status: No Alcohol use: Reports: none Drug use: Reports: marijuana Physical Exam - General Limitations: no limitations General appearance: alert, in no apparent distress Course Vital Signs Temperature 97.9 F 03/14/19 13:06 Pulse Rate 77 03/14/19 13:06 Respiratory Rate 20 03/14/19 13:06 Blood Pressure 121/72 03/14/19 13:06 O2 Sat by Pulse Oximetry 97 03/14/19 13:06 Temperature 97.9 F 03/14/19 13:06 Pulse Rate 66 03/14/19 15:18 Respiratory Rate 16 03/14/19 15:18 Blood Pressure 125/52 03/14/19 15:18 O2 Sat by Pulse Oximetry 99 03/14/19 15:18 Oxygen Delivery Oxygen Delivery Room Air Medical Decision Making - Medical Records Medical records reviewed: Yes I reviewed the patient's medical records. - Lab Data Lab results reviewed: Yes I reviewed the patient's lab results. Result diagrams: 03/14/19 13:45 Lab Results 03/14/19 Range/Units 13:45 WBC 3.3 L (4.3-11.1) K/mcL RBC 2.93 L (4.19-5.50) M/mcL Hgb 5.7 L* (12.9-16.9) g/dL Hct 21.2 L (37.5-50.1) % MCV 72.4 L (83.0-100.0) fL MCH 19.5 L (28.0-33.3) pg MCHC 26.9 L (31.6-35.5) g/dL RDW 18.9 H (11.5-14.5) % Plt Count 155 (140-400) K/mcL MPV 9.4 (9.4-12.4) fL Immature Gran % 0.0 (0-4) % Seg Neutrophils % 67.0 % Lymphocytes % 16.2 % Monocytes % 11.6 % Eosinophils % 4.6 % Basophils % 0.6 % Neutrophils # 2.2 (1.6-8.9) K/mcL Lymphocytes # 0.5 L (0.6-4.6) K/mcL Monocytes # 0.4 (0.0-1.3) K/mcL Eosinophils # 0.2 (0.0-0.6) K/mcL Basophils # 0.0 (0.0-0.2) K/mcL Platelet Estimate Normal (Normal) Hypochromasia Present A (Not Present) Microcytosis Present A (Not Present) Attestation Statement - Attestation Attestation: I, Denton Fink MD, personally evaluated this patient and discussed their management with the resident physician. I reviewed the resident's note and agree with the documented findings, medical decision making, and plan of care. 28-year-old male with history of congenital cystic hygroma presents to the emergency department with a complaint of feeling like his blood count is low again. 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 He has had multiple blood transfusions in the past. He complains of just feeling weak and fatigued and having trouble with his thoughts. He states he usually has these symptoms when his blood gets low. On examination patient is a well-developed well-nourished male in no acute distress. He is alert and oriented. No cyanosis or diaphoresis. Patient has a large tumor to the tongue and floor the mouth and anterior neck area. No active bleeding noted. Breath sounds are clear and equal bilaterally. Heart regular rate and rhythm. Labs reviewed. Hemoglobin 5.7. The hospitalist, Dr. Santos, was consulted and accepted admission of the patient.
[2019-03-14] MEDS ORDERED: traMADol 50 MG TABLET PO PRN (15:45)
[2019-03-14] MEDS ORDERED: Naloxone 0.4 MG/ML INJ IVP PRN (15:45)
[2019-03-14] MEDS ORDERED: Acetaminophen 325 MG TABLET PO PRN (15:45)
[2019-03-14] MEDS ORDERED: Ondansetron 4 MG/2 ML VIAL IVP PRN (15:45)
--- NOTE | 2019-03-14 15:45 | Internal Med History&Physical ---
<Antony Swan - Last Filed: 03/14/19 17:01> Date of Encounter: 03/14/19 Time of Encounter: 16:50 Internal Medicine - H&P: HPI History of present illness: Mr. Simmons is a 28 year old male Internal Medicine - H&P: Meds Buprenorphine HCl/Naloxone HCl [Buprenorphin-Naloxon 8-2 mg Sl] 1 tab PO BID 04/12/18 [History] Ferrous Sulfate 325 mg PO DAILY 01/23/19 [History] Allergy/AdvReac Type Severity Reaction Status Date / Time No Known Allergies Allergy Verified 03/14/19 13:06 All Systems PM: A 10-system review of systems was performed and is negative for pertinent findings except as documented above in the HPI. - Constitutional Vitals: Temp Pulse Resp BP Pulse Ox 97.9 F 66 16 125/52 99 03/14/19 13:06 03/14/19 15:18 03/14/19 15:18 03/14/19 15:18 03/14/19 15:18 Internal Med - H&P Results - Labs CBC & Chem 7: 03/14/19 13:45 03/14/19 15:00 Labs: Short CBC 03/14/19 Range/Units 13:45 WBC 3.3 L (4.3-11.1) K/mcL Hgb 5.7 L* (12.9-16.9) g/dL Hct 21.2 L (37.5-50.1) % Plt Count 155 (140-400) K/mcL Neutrophils # 2.2 (1.6-8.9) K/mcL BMP 03/14/19 15:00 Sodium 134 L Potassium 3.2 L Chloride 101 Carbon Dioxide 27 BUN 12 Creatinine 0.76 Glucose 75 Calcium 8.7 Liver Function 03/14/19 Range/Units 15:00 Total Bilirubin 0.8 (0.3-1.0) mg/dL AST 22 (13-39) Units/L ALT 16 (7-52) Units/L Alkaline Phosphatase 63 (34-104) Units/L Albumin 4.2 (3.5-5.7) g/dL - Time Spent With Patient Total time spent is greater than 50% in coordination of care (as documented) at patient's floor/unit and/or counseling patient: - Attending Attestation I saw evaluated and examined this patient and reviewed past medical, family, social histories and objective data including labs and my medical decision- making was reviewed with the Resident Physician, Uvaldo Severino. I agree with the documented findings, disposition and treatment plan as described except to any changes set forth below. We independently had [id number] contact with the patient. Patient with a history of cystic hygroma of head and neck presented to the ER with complaints of generalized weakness and tiredness. Also describes some palpitations. Patient has had multiple hospitalizations here in the past related to acute blood loss anemia. He had previously been referred to [facility] ENT where he had surgery for his cystic hygroma. However he has not been able to make it due to transportation issues. He denies any increase in size of swelling or any respiratory distress. No overt bleeding noted. On exam, he has significant tongue swelling and swelling in his neck region. No signs of respiratory compromise. Will transfuse 2 units of PRBC for his acute blood loss anemia. Recheck levels in the morning. Also check iron, B12 and folic acid levels and replete as needed. Again stressed on the importance of following up with his ENT doctor said to [facility]. Also offered him the possibility of consulting with them or the phone and arranging transfer if necessary to [facility]. Patient not willing to do this at this time. <Uvaldo Severino I - Last Filed: 03/14/19 18:57> Date of Encounter: 03/14/19 Internal Medicine - H&P: HPI History of present illness: Mr. Simmons is a 28 year old male with a history of cystic hygroma of head and neck presented to the ER with complaints of generalized weakness and tiredness. Also describes some palpitations. Patient has had multiple hospitalizations here in the past related to acute blood loss anemia. He had previously been referred to [facility] ENT where he had surgery for his cystic hygroma. However he has not been able to make it due to transportation issues. He denies any increase in size of swelling or any respiratory distress. No overt bleeding noted. patient denies difficulty breathing or eating , no chest pain , no nausea vomiting diarrhea or constipation on admission lab showes HB 5.7 , hct 21 , mcv 72 hypochromasia , microcytosis , k 3.2 , vitals stable Past Med Surg Social Fam HX - Past Medical History Medical history: hypertension, other Additional medical history: cystic hydromas Psychiatric history: anxiety, depression - Past Surgical History Surgical History: other Additional surgical history: cyst removal. tongue reduction. laser surgery - Social History Smoking Status: Current every day smoker Smokeless Tobacco Status: No Alcohol use: none Drug use: marijuana - Family History Father Adopted: No Living Status: Still Living Hx Family Cardiac Disorders: No Hx Family Respiratory Disorders: No Hx Family Cancer: No Hx Family Endocrine Disorder: Yes All Systems PM: A 10-system review of systems was performed and is negative for pertinent findings except as documented above in the HPI. - Constitutional Vitals: Temp Pulse Resp BP Pulse Ox 97.9 F 66 16 125/52 99 03/14/19 13:06 03/14/19 15:18 03/14/19 15:18 03/14/19 15:18 03/14/19 15:18 Exam: General: no acute distress , A&AX3 HEENT: Atraumatic, Normocephaly, sclera unicteric Neck: supple , Full ROM , trachea midline Cardiac: RRR , S1+. S2+ Lungs: Normal Breath Sounds Bilaterally, No Wheeze, Rales, Rhonchi Abdomen: Soft, no tenderness no organomegaly , +bowel sounds Extremities: No Clubbing, No Cyanosis,or edema , Normal Pulses Skin : intact , Normal color , bruises on his arms Psychiatric : normal affect, normal mood Nuero : alert, normal gait, oriented X3 - Internal Med - H&P Results - Labs CBC & Chem 7: 03/14/19 13:45 03/14/19 15:00 Labs: Short CBC 03/14/19 Range/Units 13:45 WBC 3.3 L (4.3-11.1) K/mcL Hgb 5.7 L* (12.9-16.9) g/dL Hct 21.2 L (37.5-50.1) % Plt Count 155 (140-400) K/mcL Neutrophils # 2.2 (1.6-8.9) K/mcL - Assessment and Plan (1) Anemia Current Visit: No Status: Acute Assessment and plan: presented to the ER with complaints of generalized weakness and tiredness. HB 5.7 , hct 21 , mcv 72 hypochromasia , microcytosis will Check iron, folic acid and B12 levels transfuse 2 PRBC continue monitoring Qualifiers: Anemia type: unspecified type Qualified Code(s): D64.9 - Anemia, unspecified (2) Cystic hygroma Current Visit: No Status: Acute Assessment and plan: this is achronic condition instructed following up with his ENT doctor [facility]. - Time Spent With Patient Total time spent is greater than 50% in coordination of care (as documented) at patient's floor/unit and/or counseling patient:
[2019-03-14 15:47] LABS: Alanine Aminotransferase 16 Units/L (7-52); Albumin 4.2 g/dL (3.5-5.7); Albumin/Globulin Ratio 1.8 (1.1-2.2); Alkaline Phosphatase 63 Units/L (34-104); Aspartate Amino Transferase 22 Units/L (13-39); BUN/Creatinine Ratio 16 (6-26); Bilirubin,Total 0.8 mg/dL (0.3-1.0); Blood Urea Nitrogen 12 mg/dL (6-20); Calcium 8.7 mg/dL (8.6-10.3); Carbon Dioxide 27 mEq/L (23-29); Chloride 101 mEq/L (98-107); Globulin 2.4 g/dL (2.4-3.5); Glucose 75 mg/dL (70-105); Osmolality,Calculated 276 (280-300); Potassium 3.2 mEq/L (3.5-5.1); Sodium 134 mEq/L (136-145); Total Protein 6.6 g/dL (6.4-8.9); eGFR For African Americans > 60 (> 60); eGFR For Non-African Americans > 60 (> 60)
[2019-03-14] MEDS: Saliva Stimulant 100ml BOTTLE PO SCH ×3 (18:15→23:21)
[2019-03-14 18:26] LABS: Bilirubin,Urine Negative (Negative); Blood,Urine Negative (Negative); Clarity,Urine Clear (Clear); Color,Urine Yellow (Yellow); Glucose,Urine (UA) Normal (Normal); Ketones,Urine Negative (Negative); Leukocyte Esterase,Urine Negative (Negative); Nitrite,Urine Negative (Negative); PH,Urine 6.5 pH Units (5.0-8.0); Protein,Urine Negative (Neg-Trace); Specific Gravity,Urine 1.009 (1.010-1.025); Urobilinogen,Urine Normal (Normal)
[2019-03-14] MEDS: Chlorhexidine Rinse 15 ML MOUTHWASH MM SCH (19:53)
[2019-03-14] MEDS ORDERED: NON-FORMULARY MEDICATION 1 EACH EACH (Buprenorphine Hcl/Naloxone Hcl [Buprenorphin-Naloxon PO SCH (21:00)
[2019-03-14] MEDS ORDERED: 0.9 % Sodium Chloride 250 ML ONE (22:55)
[2019-03-15] MEDS: Saliva Stimulant 100ml BOTTLE PO SCH ×7 (01:09→17:13)
[2019-03-15 01:57] LABS: Immature Granulocytes % 0.3 % (0-4); Red Cell Distribution Width 19.9 % (11.5-14.5)
[2019-03-15 01:58] LABS: Basophils % 0.3 %; Eosinophils # 0.2 K/mcL (0.0-0.6); Eosinophils % 4.6 %; Hematocrit 25.8 % (37.5-50.1); Hemoglobin 7.2 g/dL (12.9-16.9); Lymphocytes # 0.5 K/mcL (0.6-4.6); Lymphocytes % 14.3 %; Mean Corpuscular HGB Conc 27.9 g/dL (31.6-35.5); Mean Corpuscular Hemoglobin 21.4 pg (28.0-33.3); Mean Corpuscular Volume 76.8 fL (83.0-100.0); Mean Platelet Volume 9.4 fL (9.4-12.4); Monocytes # 0.5 K/mcL (0.0-1.3); Monocytes % 13.2 %; Neutrophils # 2.5 K/mcL (1.6-8.9); Platelet Count 139 K/mcL (140-400); Red Blood Count 3.36 M/mcL (4.19-5.50); Segmented Neutrophils % 67.3 %; White Blood Count 3.7 K/mcL (4.3-11.1)
[2019-03-15 02:13] LABS: BUN/Creatinine Ratio 19 (6-26); Blood Urea Nitrogen 10 mg/dL (6-20); Calcium 8.1 mg/dL (8.6-10.3); Carbon Dioxide 25 mEq/L (23-29); Chloride 105 mEq/L (98-107); Glucose 99 mg/dL (70-105); Osmolality,Calculated 281 (280-300); Sodium 136 mEq/L (136-145); eGFR For African Americans > 60 (> 60); eGFR For Non-African Americans > 60 (> 60)
[2019-03-15 02:16] LABS: % Iron Saturation 5 % (20-55); Iron 18 mcg/dL (65-175); Transferrin 248 mg/dL (203-362)
[2019-03-15 02:24] LABS: Hypochromasia Present (Not Present); Ovalocytes 2+ (Not Present); Platelet Estimate Decreased (Normal)
[2019-03-15 02:42] LABS: Ferritin < 8 ng/mL (20-250)
[2019-03-15] MEDS ORDERED: Iron Sucrose Complex 400 MG in 0.9 % Sodium Chloride 250 ML IVPB ONE (08:24)
[2019-03-15] MEDS: Chlorhexidine Rinse 15 ML MOUTHWASH MM SCH (08:27)
--- NOTE | 2019-03-15 08:28 | Internal Med Progress Note ---
Hospitalist Progress Note - Encounter Date of Encounter: 03/15/19 - Exam Vitals: Temp Pulse Resp BP Pulse Ox 98.0 F 67 16 103/66 99 03/15/19 07:05 03/15/19 07:05 03/15/19 07:05 03/15/19 07:05 03/15/19 07:05 - Assessment and Plan (1) Anemia Current Visit: No Status: Acute (2) Cystic hygroma Current Visit: No Status: Acute - Time Spent with Patient Total time spent is greater than 50% in coordination of care (as documented) at patient's floor/unit and/or counseling patient: Internal Medicine: Result - Labs CBC & Chem 7: 03/15/19 02:00 03/15/19 01:40 Labs: Short CBC 03/14/19 03/15/19 Range/Units 13:45 02:00 WBC 3.3 L 3.7 L (4.3-11.1) K/mcL Hgb 5.7 L* 7.2 L D (12.9-16.9) g/dL Hct 21.2 L 25.8 L (37.5-50.1) % Plt Count 155 139 L (140-400) K/mcL Neutrophils # 2.2 2.5 (1.6-8.9) K/mcL BMP 03/14/19 03/15/19 15:00 01:40 Sodium 134 L 136 Potassium 3.2 L 4.0 Chloride 101 105 Carbon Dioxide 27 25 BUN 12 10 Creatinine 0.76 0.52 L Glucose 75 99 Calcium 8.7 8.1 L Liver Function 03/14/19 Range/Units 15:00 Total Bilirubin 0.8 (0.3-1.0) mg/dL AST 22 (13-39) Units/L ALT 16 (7-52) Units/L Alkaline Phosphatase 63 (34-104) Units/L Albumin 4.2 (3.5-5.7) g/dL Urine 03/14/19 Range/Units 18:10 Urine Color Yellow (Yellow) Urine Clarity Clear (Clear) Urine pH 6.5 (5.0-8.0) pH Units Ur Specific [place] 1.009 L (1.010-1.025) Urine Protein Negative (Neg-Trace) mg/dL Urine Glucose (UA) Normal (Normal) mg/dL Consult Discharge Plan - Plan Referrals: Kristyn Weaver, AKIN [Primary Care Provider] - (1) Anemia Qualifiers: Anemia type: unspecified type Qualified Code(s): D64.9 - Anemia, unspecified
--- NOTE | 2019-03-15 11:08 | Electrocardiograph Report ---
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
[2019-03-15] MEDS ORDERED: methylPREDNISolone 125 MG/2 ML VIAL IVP ONE (14:12)
--- NOTE | 2019-03-15 14:50 | Discharge Summary ---
<Uvaldo Severino I - Last Filed: 03/15/19 16:45> - NOTES TO OUTPATIENT PROVIDER Notes to Outpatient Provider: Mr. Simmons is a 28 year old male with a history of cystic hygroma of head and neck presented to the ER with complaints of generalized weakness and tiredness.Hb on addmision was 5.7 recieved 3 PRBC , re ceived venofer and will recieve 60 mg IV solumedrol prior to discharge with plan for additional 5 days of oral prednisone 40 mg Date of Encounter: 03/15/19 Time of Encounter: 08:40 - Discharge Diagnosis (1) Anemia Priority: Primary Status: Acute Qualifiers: Anemia type: unspecified type Qualified Code(s): D64.9 - Anemia, unspecified (2) Cystic hygroma Priority: Secondary Status: Acute Hospital course: Mr. Simmons is a 28 year old male with a history of cystic hygroma of head and neck presented to the ER with complaints of generalized weakness and tiredness. Also describes some palpitations. Patient has had multiple hospitalizations here in the past related to acute blood loss anemia. He had previously been referred to [facility] ENT where he had surgery for his cystic hygroma. However he has not been able to make it due to transportation issues. He denies any increase in size of swelling or any respiratory distress. No overt bleeding noted. patient denies difficulty breathing or eating , no chest pain , no nausea vomiting diarrhea or constipation .On admission lab showes HB 5.7 , hct 21 , mcv 72 hypochromasia , microcytosis , k 3.2 , vitals stable patient recieved 2 PRBC at ER and another one today , he also received venofer and will recieve 60 mg IV solumedrol prior to discharge with plan for addirional 5 days of oral prednisone to help with his sypmtoms . patient is stable and understand treatment and plan . - Time Spent with Patient Total time spent providing and/or coordinating discharge services: - Discharge Medications Prescriptions: New PredniSONE [Deltasone] 40 mg PO DAILY 5 Days tablet Continued Buprenorphine HCl/Naloxone HCl [Buprenorphin-Naloxon 8-2 mg Sl] 1 tab PO BID Ferrous Sulfate 325 mg PO DAILY Home Medications: Buprenorphine HCl/Naloxone HCl [Buprenorphin-Naloxon 8-2 mg Sl] 1 tab PO BID 04/12/18 [History] Ferrous Sulfate 325 mg PO DAILY 01/23/19 [History] PredniSONE [Deltasone] 40 mg PO DAILY 5 Days tablet 03/15/19 [Rx] Allergies/Adverse Reactions: Allergy/AdvReac Type Severity Reaction Status Date / Time No Known Allergies Allergy Verified 03/14/19 13:06 Date of admission: 03/14/19 15:34 Primary care physician: Kristyn Weaver - Constitutional Vitals: Temp Pulse Resp BP Pulse Ox 97.9 F 63 16 97/60 99 03/15/19 10:51 03/15/19 10:51 03/15/19 10:51 03/15/19 10:51 03/15/19 10:51 Exam: General: no acute distress , A&AX3 HEENT: Atraumatic, Normocephaly, sclera unicteric , enlarged neck and macroglossia Neck: supple , Full ROM , trachea midline Cardiac: RRR , S1+. S2+ Lungs: Normal Breath Sounds Bilaterally, No Wheeze, Rales, Rhonchi Abdomen: Soft, no tenderness no organomegaly , +bowel sounds Extremities: No Clubbing, No Cyanosis,or edema , Normal Pulses Skin : intact , Normal color , bruises on his arms Psychiatric : normal affect, normal mood Nuero : alert, normal gait, oriented X3 - Patient Status Disposition: Home, Self-Care Condition: Good Functional capacity at discharge: independent ambulation Overall status at discharge: patient is back to baseline - Discharge Instructions Instructions: Iron Rich Diet (DC), Anemia (DC) Follow Up With: Kristyn Weaver, AKIN [Primary Care Provider] - 03/20/19 9:30 am (Appointment will be with Aníbal Boyer ) Anne Barry DO [Non-Partnered Physician] - (in 1-2 weeks) - Diet and Activity Activity: increase activity as tolerated <Antony Swan - Last Filed: 03/15/19 17:05> Date of Encounter: 03/15/19 Time of Encounter: 17:03 Hospital course: Mr. Simmons is a 28 year old male - Time Spent with Patient Total time spent providing and/or coordinating discharge services: Date of admission: 03/14/19 15:34 Primary care physician: Kristyn Owen - Constitutional Vitals: Temp Pulse Resp BP Pulse Ox 98.3 F 65 18 94/54 98 03/15/19 15:22 03/15/19 15:22 03/15/19 15:22 03/15/19 15:22 03/15/19 15:22 - Attending Attestation I saw evaluated and examined this patient and reviewed objective data including labs and my medical decision-making was reviewed with the Resident Physician. I agree with the documented findings, disposition and discharge plan as described except to any changes set forth below. We independently had [id number] contact with the patient. Patient with a history of cystic hygroma involving his head and neck was hospitalized here for acute on chronic anemia most likely due to bleeding from this hygroma. He has had similar episodes in the past. He was treated with PRBC transfusion of 3 units. His hemoglobin levels have improved. He is feeling much better and is clinically stable to be discharged home today. He does have low iron levels and has been on iron supplements at home. We have also transfused IM intravenously. Patient needs to follow up with ENT at [facility] who had managed his hygroma. Patient states that he has transportation issues. As such we did recommend that he follow-up with ENT here at least for close follow-up and management. Time spent on discharge : 10 min
[2019-03-15] MEDS ORDERED: 0.9 % Sodium Chloride 250 ML ONE (14:57)
[2019-03-15 17:13] VITALS: BP 115/44
== END 2019-03-15 17:38 | disposition home or self-care (01) ==
LOC: 3BNU 13:01 → EMEROOARM 13:01 → 3BNU 16:39
PROVIDERS: ADMIT Internal Medicine; ATTEND Internal Medicine

== ENCOUNTER 2021-01-05 10:13 | Inpatient (IN) ==
[2021-01-05 11:26] LABS: Basophils % 0.4 %; Eosinophils % 1.2 %; Hematocrit 16.1 % (37.5-50.1); Immature Granulocytes % 0.4 % (0-4); Immature Platelets 1.9 % (1.1-6.1); Lymphocytes # 0.3 K/mcL (0.6-4.6); Mean Corpuscular HGB Conc 25.5 g/dL (31.6-35.5); Mean Corpuscular Hemoglobin 19.2 pg (28.0-33.3); Mean Corpuscular Volume 75.2 fL (83.0-100.0); Monocytes # 0.2 K/mcL (0.0-1.3); Monocytes % 9.4 %; Neutrophils # 1.9 K/mcL (1.6-8.9); Nucleated Red Blood Cells 0.8 /100 WBC (0); Platelet Count 170 K/mcL (140-400); Red Blood Count 2.14 M/mcL (4.19-5.50); Red Cell Distribution Width 20.2 % (11.5-14.5); Segmented Neutrophils % 77.6 %; White Blood Count 2.5 K/mcL (4.3-11.1)
[2021-01-05 11:28] LABS: Hemoglobin 4.1 g/dL (12.9-16.9)
[2021-01-05 11:35] LABS: BUN/Creatinine Ratio 13 (6-26); Blood Urea Nitrogen 9 mg/dL (6-20); Calcium 8.8 mg/dL (8.6-10.3); Carbon Dioxide 28 mEq/L (23-29); Chloride 101 mEq/L (98-107); Glucose 84 mg/dL (70-105); Osmolality,Calculated 284 (280-300); Potassium 4.1 mEq/L (3.5-5.1); Sodium 138 mEq/L (136-145); eGFR For African Americans > 60 (> 60); eGFR For Non-African Americans > 60 (> 60)
[2021-01-05 11:57] LABS: Anisocytosis 2+ (Not Present); Hypochromasia Present (Not Present); Polychromasia 2+ (Not Present)
[2021-01-05 11:58] LABS: Platelet Estimate Normal (Normal); Poikilocytosis 1+ (Not Present)
[2021-01-05] MEDS ORDERED: Naloxone 0.4 MG/ML INJ IVP PRN (14:05)
[2021-01-05] MEDS ORDERED: Mag Hydrox/Al Hydrox/Simeth 30 ML UDC PO PRN (14:05)
[2021-01-05] MEDS ORDERED: Acetaminophen 325 MG TABLET PO PRN (14:05)
[2021-01-05] MEDS ORDERED: MOM Conc 10 ML UD.LIQ PO PRN (14:05)
[2021-01-05] MEDS ORDERED: Ondansetron ODT 4 MG TAB.RAPDIS SL PRN (14:05)
[2021-01-05] MEDS ORDERED: Ondansetron 4 MG/2 ML VIAL IVP PRN (15:18)
[2021-01-05] MEDS ORDERED: Iron Sucrose Complex 400 MG in 0.9 % Sodium Chloride 250 ML IVPB ONE (15:18)
[2021-01-05] MEDS ORDERED: 0.9 % Sodium Chloride 1,000 ML ONE (17:30)
[2021-01-05] MEDS: *HR* Buprenorphine HCl 8 MG TAB.SUBL SL SCH (21:51)
[2021-01-06 01:24] LABS: Hematocrit 15.3 % (37.5-50.1); Mean Corpuscular HGB Conc 27.5 g/dL (31.6-35.5); Mean Corpuscular Volume 76.5 fL (83.0-100.0); Mean Platelet Volume 9.8 fL (9.4-12.4); Platelet Count 191 K/mcL (140-400); Red Cell Distribution Width 19.2 % (11.5-14.5); White Blood Count 2.8 K/mcL (4.3-11.1)
[2021-01-06 01:28] LABS: Hemoglobin 4.2 g/dL (12.9-16.9)
[2021-01-06 01:34] LABS: BUN/Creatinine Ratio 20 (6-26); Blood Urea Nitrogen 12 mg/dL (6-20); Calcium 9.1 mg/dL (8.6-10.3); Carbon Dioxide 27 mEq/L (23-29); Chloride 101 mEq/L (98-107); Glucose 174 mg/dL (70-105); Magnesium 2.1 mg/dL (1.6-2.6); Osmolality,Calculated 284 (280-300); Potassium 4.3 mEq/L (3.5-5.1); Sodium 135 mEq/L (136-145); eGFR For African Americans > 60 (> 60); eGFR For Non-African Americans > 60 (> 60)
[2021-01-06] MEDS ORDERED: 0.9 % Sodium Chloride 500 ML ONE (02:35)
[2021-01-06] MEDS: *HR* Buprenorphine HCl 8 MG TAB.SUBL SL SCH ×2 (07:49→21:17)
[2021-01-06 16:14] LABS: Hematocrit 17.3 % (37.5-50.1)
[2021-01-06 16:23] LABS: Hemoglobin 4.9 g/dL (12.9-16.9)
[2021-01-06] MEDS ORDERED: 0.9 % Sodium Chloride 250 ML ONE ×2 (17:00→22:25)
[2021-01-06 21:14] LABS: Hematocrit 20.7 % (37.5-50.1)
[2021-01-06 21:22] LABS: Hemoglobin 5.7 g/dL (12.9-16.9)
[2021-01-07 02:35] LABS: Hematocrit 24.5 % (37.5-50.1); Hemoglobin 6.9 g/dL (12.9-16.9)
[2021-01-07] MEDS ORDERED: 0.9 % Sodium Chloride 250 ML ONE ×2 (04:34→09:37)
[2021-01-07] MEDS: *HR* Buprenorphine HCl 8 MG TAB.SUBL SL SCH (07:52)
[2021-01-07 10:41] LABS: Hematocrit 28.7 % (37.5-50.1); Hemoglobin 8.4 g/dL (12.9-16.9)
[2021-01-07 12:18] VITALS: BP 120/70; PULSE 71; TEMP 99.1; O2SAT 95
== END 2021-01-07 16:24 | disposition home or self-care (01) | DRG 663 ==
LOC: 2ANU 10:13 → EMEROOARM 10:13 → 2ANU 16:22
PROVIDERS: ADMIT Internal Medicine; ATTEND Internal Medicine

== ENCOUNTER 2022-02-16 08:04 | Inpatient (IN) ==
[2022-02-16 08:50] LABS: Basophils % 0.3 %; Eosinophils # 0.1 K/mcL (0.0-0.6); Eosinophils % 2.2 %; Immature Granulocytes % 0.6 % (0-4); Lymphocytes # 0.4 K/mcL (0.6-4.6); Lymphocytes % 12.3 %; Mean Corpuscular HGB Conc 24.6 g/dL (31.6-35.5); Mean Corpuscular Hemoglobin 18.4 pg (28.0-33.3); Mean Corpuscular Volume 74.8 fL (83.0-100.0); Mean Platelet Volume 9.8 fL (9.4-12.4); Monocytes # 0.3 K/mcL (0.0-1.3); Neutrophils # 2.7 K/mcL (1.6-8.9); Platelet Count 162 K/mcL (140-400); Red Blood Count 1.63 M/mcL (4.19-5.50); Red Cell Distribution Width 21.1 % (11.5-14.5); Segmented Neutrophils % 75.6 %; White Blood Count 3.6 K/mcL (4.3-11.1)
[2022-02-16 08:54] LABS: INR 1.2; Prothrombin Time 13.2 Seconds (9.4-12.1)
[2022-02-16 09:05] LABS: BUN/Creatinine Ratio 14 (6-26); Blood Urea Nitrogen 8 mg/dL (6-20); Calcium 8.7 mg/dL (8.6-10.3); Carbon Dioxide 26 mEq/L (23-29); Chloride 105 mEq/L (98-107); Glucose 100 mg/dL (70-105); Osmolality,Calculated 280 (280-300); Potassium 4.1 mEq/L (3.5-5.1); Sodium 136 mEq/L (136-145)
[2022-02-16 09:11] LABS: Hematocrit 12.2 % (37.5-50.1)
[2022-02-16 09:15] LABS: Hypochromasia Present (Not Present); Microcytosis Present (Not Present)
[2022-02-16 09:16] LABS: Anisocytosis 2+ (Not Present); Platelet Estimate Normal (Normal); Polychromasia 1+ (Not Present)
[2022-02-16 09:54] LABS: Iron < 10 mcg/dL (65-175); Lactate Dehydrogenase 109 Units/L (140-271); Transferrin 365 mg/dL (203-362)
[2022-02-16 10:01] LABS: Retculocyte # 0.11 M/mcL (0.05-0.10); Reticulocyte % 6.4 % (1.6-2.8)
[2022-02-16 10:02] LABS: Immature Reticulocyte % 32.5 % (11.0-38.0)
[2022-02-16] MEDS ORDERED: 0.9 % Sodium Chloride 250 ML ONE ×4 (13:39→20:58)
[2022-02-16 13:47] LABS: Alanine Aminotransferase 7 Units/L (7-52); Albumin 4.2 g/dL (3.5-5.7); Albumin/Globulin Ratio 1.6 (1.1-2.2); Alkaline Phosphatase 63 Units/L (34-104); Aspartate Amino Transferase 18 Units/L (13-39); Bilirubin,Direct 0.1 mg/dL (0.0-0.2); Bilirubin,Indirect 0.6 mg/dL (0.0-1.0); Bilirubin,Total 0.7 mg/dL (0.3-1.0); Globulin 2.6 g/dL (2.4-3.5); Total Protein 6.8 g/dL (6.4-8.9)
[2022-02-16 14:03] LABS: Fibrinogen 295 mg/dL (169-393)
[2022-02-16 14:05] LABS: D-Dimer 1003 ng/mLFEU (0-500)
[2022-02-16] MEDS ORDERED: Ondansetron ODT 4 MG TAB.RAPDIS SL PRN (14:47)
[2022-02-16 16:54] LABS: Hemoglobin 3.5 g/dL (12.9-16.9)
[2022-02-16 20:02] LABS: Hematocrit 15.4 % (37.5-50.1)
[2022-02-16] MEDS: BUPRENORPHINE HCL PO SCH (20:03)
[2022-02-16] MEDS: NALOXONE HCL PO SCH (20:03)
[2022-02-16 20:12] LABS: Hemoglobin 4.4 g/dL (12.9-16.9)
[2022-02-17 03:04] LABS: Nucleated Red Blood Cells 0.7 /100 WBC (0); Red Cell Distribution Width 19.9 % (11.5-14.5)
[2022-02-17 03:05] LABS: Basophils % 0.7 %; Eosinophils # 0.1 K/mcL (0.0-0.6); Eosinophils % 3.6 %; Hematocrit 20.2 % (37.5-50.1); Immature Granulocytes % 0.4 % (0-4); Lymphocytes # 0.5 K/mcL (0.6-4.6); Lymphocytes % 16.5 %; Mean Corpuscular HGB Conc 29.7 g/dL (31.6-35.5); Mean Corpuscular Hemoglobin 23.2 pg (28.0-33.3); Monocytes # 0.3 K/mcL (0.0-1.3); Monocytes % 11.8 %; Neutrophils # 1.9 K/mcL (1.6-8.9); Platelet Count 153 K/mcL (140-400); Red Blood Count 2.59 M/mcL (4.19-5.50); White Blood Count 2.8 K/mcL (4.3-11.1)
[2022-02-17] MEDS ORDERED: 0.9 % Sodium Chloride 250 ML IVC SCH (05:45)
[2022-02-17] MEDS: NALOXONE HCL PO SCH ×2 (07:59→20:23)
[2022-02-17] MEDS: BUPRENORPHINE HCL PO SCH ×2 (07:59→20:23)
[2022-02-17 14:31] LABS: Hematocrit 23.3 % (37.5-50.1); Hemoglobin 7.2 g/dL (12.9-16.9)
[2022-02-17] MEDS ORDERED: predniSONE 20 MG TABLET PO ONE (15:37)
[2022-02-17 21:04] LABS: Hematocrit 24.1 % (37.5-50.1); Hemoglobin 7.3 g/dL (12.9-16.9)
[2022-02-18 05:12] LABS: Basophils % 0.2 %; Hematocrit 23.9 % (37.5-50.1); Hemoglobin 7.2 g/dL (12.9-16.9); Immature Granulocytes % 0.4 % (0-4); Lymphocytes # 0.3 K/mcL (0.6-4.6); Mean Corpuscular HGB Conc 30.1 g/dL (31.6-35.5); Mean Corpuscular Hemoglobin 23.8 pg (28.0-33.3); Mean Corpuscular Volume 79.1 fL (83.0-100.0); Mean Platelet Volume 9.4 fL (9.4-12.4); Monocytes # 0.3 K/mcL (0.0-1.3); Monocytes % 5.5 %; Nucleated Red Blood Cells 0.9 /100 WBC (0); Platelet Count 162 K/mcL (140-400); Red Blood Count 3.02 M/mcL (4.19-5.50); Red Cell Distribution Width 19.6 % (11.5-14.5); Segmented Neutrophils % 87.9 %
[2022-02-18 05:21] LABS: White Blood Count 4.5 K/mcL (4.3-11.1)
[2022-02-18 06:50] VITALS: BP 124/55; PULSE 70; TEMP 97.9; O2SAT 89
[2022-02-18] MEDS: BUPRENORPHINE HCL PO SCH (08:38)
[2022-02-18] MEDS: NALOXONE HCL PO SCH (08:38)
== END 2022-02-18 11:01 | disposition home or self-care (01) | DRG 663 ==
LOC: 3NENU 08:04 → EMEROOARM 08:04 → 3NENU 15:01 → SUATTDRO 16:07
PROVIDERS: ADMIT Internal Medicine; ATTEND Family Medicine

== ENCOUNTER 2022-04-18 08:00 | Inpatient (IN) ==
[2022-04-18 08:41] LABS: Lymphocytes # 0.3 K/mcL (0.6-4.6); Mean Corpuscular HGB Conc 24.6 g/dL (31.6-35.5); Mean Corpuscular Hemoglobin 17.9 pg (28.0-33.3); Mean Corpuscular Volume 72.8 fL (83.0-100.0); Mean Platelet Volume 10.1 fL (9.4-12.4); Platelet Count 168 K/mcL (140-400); Red Blood Count 1.62 M/mcL (4.19-5.50)
[2022-04-18 08:48] LABS: Hematocrit 11.8 % (37.5-50.1); Hemoglobin 2.9 g/dL (12.9-16.9)
[2022-04-18] MEDS ORDERED: 0.9 % Sodium Chloride 250 ML ONE ×4 (08:52→22:20)
[2022-04-18 08:56] LABS: Alanine Aminotransferase 8 Units/L (7-52); Albumin 4.3 g/dL (3.5-5.7); Albumin/Globulin Ratio 1.7 (1.1-2.2); Alkaline Phosphatase 64 Units/L (34-104); Aspartate Amino Transferase 26 Units/L (13-39); BUN/Creatinine Ratio 18 (6-26); Blood Urea Nitrogen 11 mg/dL (6-20); Carbon Dioxide 23 mEq/L (23-29); Chloride 99 mEq/L (98-107); Globulin 2.6 g/dL (2.4-3.5); Glucose 99 mg/dL (70-105); Osmolality,Calculated 279 (280-300); Potassium 4.2 mEq/L (3.5-5.1); Sodium 135 mEq/L (136-145); Total Protein 6.9 g/dL (6.4-8.9)
[2022-04-18 09:53] LABS: % Iron Saturation 2 % (20-55); Iron 11 mcg/dL (65-175); Transferrin 366 mg/dL (203-362); Troponin I < 0.03 ng/mL (< 0.04)
[2022-04-18] MEDS ORDERED: Naloxone 0.4 MG/ML INJ IVP PRN (11:14)
[2022-04-18 11:35] LABS: Reticulocyte % 6.4 % (1.6-2.8)
[2022-04-18 11:36] LABS: Immature Reticulocyte % 28.6 % (11.0-38.0); Retculocyte # 0.09 M/mcL (0.05-0.10)
[2022-04-18 11:54] LABS: Monocytes # 0.2 K/mcL (0.0-1.3); Neutrophils # 2.4 K/mcL (1.6-8.9)
[2022-04-18 11:55] LABS: Nucleated Red Blood Cells 1 /100 WBC (0)
[2022-04-18 11:56] LABS: Platelet Estimate Normal (Normal)
[2022-04-18 11:57] LABS: Hypochromasia Present (Not Present); Poikilocytosis 1+ (Not Present)
[2022-04-18 11:59] LABS: Acanthocytes 2+ (Not Present)
[2022-04-18 12:00] LABS: Polychromasia 1+ (Not Present)
[2022-04-18] MEDS: Ringers Solution, Lactated 1,000 ML IVC SCH (12:57)
[2022-04-18 20:25] LABS: Hematocrit 16.3 % (37.5-50.1)
[2022-04-18 20:28] LABS: Hemoglobin 4.6 g/dL (12.9-16.9)
[2022-04-19] MEDS ORDERED: 0.9 % Sodium Chloride 250 ML ONE ×2 (01:29→09:59)
[2022-04-19] MEDS: Ringers Solution, Lactated 1,000 ML IVC SCH (04:59)
[2022-04-19 06:08] LABS: Basophils % 0.8 %; Eosinophils % 1.2 %; Hematocrit 21.7 % (37.5-50.1); Immature Granulocytes % 0.4 % (0-4); Lymphocytes # 0.4 K/mcL (0.6-4.6); Lymphocytes % 15.3 %; Mean Corpuscular Hemoglobin 24.5 pg (28.0-33.3); Mean Platelet Volume 9.4 fL (9.4-12.4); Monocytes # 0.2 K/mcL (0.0-1.3); Monocytes % 8.4 %; Neutrophils # 1.8 K/mcL (1.6-8.9); Platelet Count 147 K/mcL (140-400); Red Blood Count 2.65 M/mcL (4.19-5.50); Red Cell Distribution Width 19.5 % (11.5-14.5); Segmented Neutrophils % 73.9 %; White Blood Count 2.5 K/mcL (4.3-11.1)
[2022-04-19 06:13] LABS: Hemoglobin 6.5 g/dL (12.9-16.9); Mean Corpuscular Volume 81.9 fL (83.0-100.0)
[2022-04-19 06:30] LABS: BUN/Creatinine Ratio 14 (6-26); Blood Urea Nitrogen 8 mg/dL (6-20); Calcium 8.7 mg/dL (8.6-10.3); Carbon Dioxide 25 mEq/L (23-29); Chloride 105 mEq/L (98-107); Glucose 93 mg/dL (70-105); Osmolality,Calculated 280 (280-300); Sodium 136 mEq/L (136-145)
[2022-04-19] MEDS ORDERED: methylPREDNISolone 125 MG/2 ML VIAL IVP ONE (09:45)
[2022-04-19] MEDS ORDERED: Iron Sucrose Complex 400 MG in 0.9 % Sodium Chloride 250 ML IVPB ONE (11:25)
[2022-04-19 16:02] LABS: Hematocrit 24.6 % (37.5-50.1); Hemoglobin 7.6 g/dL (12.9-16.9)
[2022-04-19] MEDS: methylPREDNISolone 125 MG/2 ML VIAL IVP SCH (17:14)
[2022-04-19] MEDS: NALOXONE HCL PO SCH (19:49)
[2022-04-19] MEDS: BUPRENORPHINE HCL PO SCH (19:49)
[2022-04-20 00:54] LABS: Hematocrit 24.9 % (37.5-50.1); Hemoglobin 7.5 g/dL (12.9-16.9); Mean Corpuscular HGB Conc 30.1 g/dL (31.6-35.5); Mean Corpuscular Hemoglobin 24.4 pg (28.0-33.3); Mean Corpuscular Volume 81.1 fL (83.0-100.0); Mean Platelet Volume 9.5 fL (9.4-12.4); Platelet Count 138 K/mcL (140-400); Red Blood Count 3.07 M/mcL (4.19-5.50); Red Cell Distribution Width 18.4 % (11.5-14.5)
[2022-04-20 01:04] LABS: BUN/Creatinine Ratio 17 (6-26); Blood Urea Nitrogen 10 mg/dL (6-20); Calcium 9.1 mg/dL (8.6-10.3); Carbon Dioxide 23 mEq/L (23-29); Chloride 104 mEq/L (98-107); Glucose 171 mg/dL (70-105); Osmolality,Calculated 281 (280-300); Potassium 3.9 mEq/L (3.5-5.1); Sodium 134 mEq/L (136-145)
[2022-04-20 04:23] VITALS: TEMP 98.2
[2022-04-20] MEDS: methylPREDNISolone 125 MG/2 ML VIAL IVP SCH (05:12)
[2022-04-20 08:27] VITALS: BP 129/89; PULSE 75; O2SAT 95
[2022-04-20] MEDS: BUPRENORPHINE HCL PO SCH (08:29)
[2022-04-20] MEDS: NALOXONE HCL PO SCH (08:29)
== END 2022-04-20 12:24 | disposition home or self-care (01) | DRG 663 ==
LOC: EMEROOARM 08:00 → 2NENU 08:00 → SUATTDRO 11:33 → 2NENU 12:09
PROVIDERS: ADMIT Internal Medicine; ATTEND Internal Medicine